=== PATIENT | female | born 1945 ===

== ENCOUNTER 2016-07-13 11:42 | Inpatient (IN) | payer MEDICARE, MEDICAID ==
[2016-07-13 11:46] VITALS: BMI 35.3
--- NOTE | 2016-07-13 12:32 | ED PDOC ---
HPI: Neurologic - General Time Seen by Provider: 07/13/16 12:00 Chief Complaint (Nursing): Dizziness/Lightheaded Chief Complaint (Provider): Dizziness/Lightheaded Source: patient Exam Limitations: clinical condition - History of Present Illness Timing/Duration: 1 week Associated Symptoms: denies symptoms Allergies/Adverse Reactions: Allergies No Known Allergies Allergy (Verified 09/03/15 19:46) Home Medications: Ambulatory Orders ARIPiprazole [Abilify] 5 mg PO HS 07/13/16 Alendronate [Fosamax] 70 mg PO QWK 07/13/16 Aspirin [Aspirin EC] 325 mg PO DAILY 07/13/16 Atorvastatin [Lipitor] 10 mg PO DAILY 07/13/16 Calcitriol [Rocaltrol] 0.5 mcg PO MOFR 07/13/16 Carvedilol [Coreg] 6.25 mg PO Q12H 07/13/16 Dorzolamide 2%/Timolol 0.5% [Cosopt 2%-0.5% Opht] 1 drop EACHEYE BID 07/13/16 Enalapril/Hydrochlorothiazide [Enalapril-Hctz 5-12.5 mg Tab] 1 tab PO DAILY 05/27 Ergocalciferol (Vitamin D2) [Vitamin D2] 50,000 unit PO QWK 07/13/16 Fenofibrate [Triglide] 160 mg PO DAILY 07/13/16 Furosemide [Lasix] 40 mg PO DAILY 07/13/16 GlipiZIDE [Glucotrol] 10 mg PO DAILY 07/13/16 Latanoprost [Xalatan] 1 drop EACHEYE HS 07/13/16 Omeprazole [Omeprazole] 20 mg PO DAILY 07/13/16 SITagliptin [Januvia] 25 mg PO DAILY 07/13/16 Vitamin B Complex/Vit C/Folic [Nephro-Diane] 1 tab PO DAILY 07/13/16 amLODIPine [Norvasc] 10 mg PO DAILY 07/13/16 lamoTRIgine [Lamictal] 50 mg PO HS 07/13/16 Additional Complaint(s): Patient is a 71 year old female who presents to ED for dizziness for 4 days. Patients that's that the room is spinning. Denies any pain. no headache/ vomiting. denies fever/chills. History of CVA with right hemiparalysis DR. Mcdonald NIHSS Stroke Scale - Date/Time Evaluation Performed When Was NIHSS Performed: Baseline - How Severe is the Stroke Level of Consciousness: 0=Alert LOC to Questions: 0=Both comments correct LOC to commands: 0=Obeys both correctly Best Gaze: 0=Normal Visual: 0=No visual loss Facial: 1=Minor asymmetry Motor Arm - Left: 0=No drift Motor Arm - Right: 1=Drift noted before 10 sec Motor Leg - Left: 0=No drift Motor Leg - Right: 1=Drift before 5 sec Limb Ataxia: 0=Absent Sensory: 0=Normal Best Language: 1=Mild to moderate aphasia Dysarthia: 1=Mild to moderate slurring Extinction & Inattention (Neglect): 0=Normal, no object Score: 5 rTPA Inclusion/Exclusion - Refusal of Treatment Patient Refused Treatment: No - Inclusion Criteria for Altepase Patient is 18 years or Older: Yes The Clinical Diagnosis of Ischemic Stroke That is Causing a Potentially Disabling Neurological Deficit: No Time of Onset is Well Established to be Less Than 270 Minute Before Treatment Would Begin: No Risk/Benefit Discussed With Patient/Family Member Present: No - Exclusion Criteria for Altepase Uncontrolled Hypertension at Time of Treatment (Systolic BP above 185 or Diastolic BP above 110 mmHg): No - Warning to TPA With Conditions Following Conditions Weighed Against Anticipated Benefit: No Past Medical History Reviewed: Historical Data, Nursing Documentation, Vital Signs Vital Signs: Last Vital Signs Temp 98.3 F 07/13/16 11:44 Pulse 51 L 07/13/16 11:44 Resp 18 07/13/16 11:44 BP 145/57 L 07/13/16 11:44 Pulse Ox 100 07/13/16 11:44 - Medical History PMH: Anxiety, Arthritis, CHF, CVA (9 years ago in [facility]), Dementia , Depression, Diabetes, HTN, Hypercholesterolemia, Hyperlipidemia, Kidney Stones , Schizophrenia, Seizures Denies: Chronic Kidney Disease - Surgical History Surgical History: No Surg Hx - Family History Family History: States: Unknown Family Hx - Living Arrangements Living Arrangements: With Family - Social History Current smoker - smoking cessation education provided: No Alcohol: None Drugs: Denies - Immunization History Hx Tetanus Toxoid Vaccination: No Hx Influenza Vaccination: Yes Hx Pneumococcal Vaccination: No - Home Medications Home Medications: Ambulatory Orders Medication Instructions Recorded ARIPiprazole [Abilify] 5 mg PO HS 07/13/16 Alendronate [Fosamax] 70 mg PO QWK 07/13/16 Aspirin [Aspirin EC] 325 mg PO DAILY 07/13/16 Atorvastatin [Lipitor] 10 mg PO DAILY 07/13/16 Calcitriol [Rocaltrol] 0.5 mcg PO MOFR 07/13/16 Carvedilol [Coreg] 6.25 mg PO Q12H 07/13/16 Dorzolamide 2%/Timolol 0.5% 1 drop EACHEYE BID 07/13/16 [Cosopt 2%-0.5% Opht] Enalapril/Hydrochlorothiazide 1 tab PO DAILY 07/13/16 [Enalapril-Hctz 5-12.5 mg Tab] Ergocalciferol (Vitamin D2) 50,000 unit PO QWK 07/13/16 [Vitamin D2] Fenofibrate [Triglide] 160 mg PO DAILY 07/13/16 Furosemide [Lasix] 40 mg PO DAILY 07/13/16 GlipiZIDE [Glucotrol] 10 mg PO DAILY 07/13/16 Latanoprost [Xalatan] 1 drop EACHEYE HS 07/13/16 Omeprazole [Omeprazole] 20 mg PO DAILY 07/13/16 SITagliptin [Januvia] 25 mg PO DAILY 07/13/16 Vitamin B Complex/Vit C/Folic 1 tab PO DAILY 07/13/16 [Nephro-Diane] amLODIPine [Norvasc] 10 mg PO DAILY 07/13/16 lamoTRIgine [Lamictal] 50 mg PO HS 07/13/16 - Allergies Allergies/Adverse Reactions: Allergies Allergy/AdvReac Type Severity Reaction Status Date / Time No Known Allergies Allergy Verified 09/03/15 19:46 Review of Systems ROS Statement: Except As Marked, All Systems Reviewed And Found Negative Neurological: Positive for: Dizziness Physical Exam - Reviewed Nursing Documentation Reviewed: Yes Vital Signs Reviewed: Yes - Physical Exam Appears: Positive for: Non-toxic, No Acute Distress Head Exam: Positive for: ATRAUMATIC, NORMAL INSPECTION Skin: Positive for: Normal Color, Warm, DRY Eye Exam: Positive for: EOMI, Normal appearance, PERRL Neck: Positive for: Normal, Painless ROM Cardiovascular/Chest: Positive for: Regular Rate, Rhythm. Negative for: Murmur Respiratory: Positive for: Normal Breath Sounds. Negative for: Respiratory Distress Gastrointestinal/Abdominal: Positive for: Normal Exam Extremity: Positive for: Normal ROM. Negative for: Pedal Edema Neurologic/Psych: Positive for: Alert, Oriented, Motor/Sensory Deficits (r hemipareis due to old stroke), Aphasia (due to old stroke), Facial Droop (due to old storke), Other (Chronic right hemiparalysis) - Laboratory Results Result Diagrams: 07/14/16 05:10 07/14/16 05:10 - ECG ECG: Positive for: Interpreted By Me ECG Rhythm: Positive for: Sinus Bradycardia. Negative for: ST/T Changes Rate: 49 O2 Sat by Pulse Oximetry: 100 (RA) Pulse Ox Interpretation: Normal - Radiology X-Ray: Viewed By Me, Read By Radiologist X-Ray Interpretation: Other (see MDM text for interpretations) Medical Decision Making Medical Decision Making: Time: 1210 Initial impression: Dizziness rule otu intracranial process, CVA Initial plan: -- EKG -- CMP -- Troponin -- CBC -- CXR 1401 Chest XRay read and reviewed by radiologist FINDINGS: LUNGS: Mild bibasilar atelectasis PLEURA: No significant pleural effusion identified, no pneumothorax apparent. CARDIOVASCULAR: Normal. OSSEOUS STRUCTURES: Re- demonstrated is deformity of the right humeral head as well as apparent old posttraumatic unfused fracture left humeral head clear VISUALIZED UPPER ABDOMEN: Normal. OTHER FINDINGS: None. IMPRESSION: Mild bibasilar atelectasis 1522 Upon reevaluation, pt is neurologically at baseline. 1545 Upon reevaluation, patient reports feeling dizziness. Patient is given Meclizine and will be evaluated by speech pathology. after meclziine pt still dizzy and will be [facility] on-call Dr valencia. Patient is being admitted under Dr. Valencia because her PMD is not affiliated with [facility]. 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 1640 Dr Lehman called for consult. no answer back. dx dizziness Scribe Attestation: Documented by Erica El acting as a scribe for Max Calderon MD MD Scribe Attestation: All medical record entries made by the Scribe were at my direction and personally dictated by me. I have reviewed the chart and agree that the record accurately reflects my personal performance of the history, physical exam, medical decision making, and the department course for this patient. I have also personally directed, reviewed, and agree with the discharge instructions and disposition. Disposition - Clinical Impression Clinical Impression: Dizziness - Patient ED Disposition Is Patient to be Admitted: Yes - Disposition Disposition Time: 15:00 Condition: FAIR
[2016-07-13 12:59] LABS: BASO # 0.1 K/uL (0.0-0.2); BASO % 0.8 % (0.0-2.0); EOS # 0.1 K/uL (0.0-0.7); EOS % 1.2 % (0.0-4.0); HEMATOCRIT 35.2 % (34.0-47.0); LYMPH # 1.9 K/uL (1.0-4.3); LYMPH % 19.5 % (20.0-40.0); MEAN CELL VOLUME 83.9 fl (81.0-99.0); MEAN CORPUSCULAR HEMOGLOBIN 27.8 pg (27.0-31.0); MEAN CORPUSCULAR HGB CONC 33.2 g/dL (33.0-37.0); MEAN PLATELET VOLUME 10.5 fl (7.2-11.7); MONO # 0.6 K/uL (0.0-0.8); NEUT # 7.2 K/uL (1.8-7.0); NEUT % 72.5 % (50.0-75.0); NRBC % 0.1 % (0.0-0.0); RED CELL DISTRIBUTION WIDTH 15.7 % (11.5-14.5); WHITE BLOOD COUNT 9.9 K/uL (4.8-10.8)
[2016-07-13 13:10] LABS: ALB/GLOB RATIO 1.2 (1.0-2.1); ALKALINE PHOSPHATASE 60 U/L (38-126); ALT/SGPT 35 U/L (9-52); AST/SGOT 33 U/L (14-36); BILIRUBIN,TOTAL 1.2 mg/dl (0.2-1.3); BLOOD UREA NITROGEN 23 mg/dl (7-17); CALCIUM 9.8 mg/dL (8.4-10.2); CARBON DIOXIDE 30 mmol/L (22-30); CHLORIDE 101 mmol/L (98-107); GFR AFRICAN-AMERICAN 49; GLUCOSE,RANDOM 133 mg/dL (65-105); POTASSIUM 3.7 MMOL/L (3.6-5.0); SODIUM 141 mmol/l (132-148); TOTAL PROTEIN 7.2 G/DL (6.3-8.2)
--- NOTE | 2016-07-13 14:03 | RAD ---
HISTORY: dizziness COMPARISON: 05/24/2013 FINDINGS: LUNGS: Mild bibasilar atelectasis PLEURA: No significant pleural effusion identified, no pneumothorax apparent. CARDIOVASCULAR: Normal. OSSEOUS STRUCTURES: Re- demonstrated is deformity of the right humeral head as well as apparent old posttraumatic unfused fracture left humeral head clear VISUALIZED UPPER ABDOMEN: Normal. OTHER FINDINGS: None. IMPRESSION: Mild bibasilar atelectasis
--- NOTE | 2016-07-13 14:48 | CT ---
PROCEDURE: CT HEAD WITHOUT CONTRAST. HISTORY: dizziness COMPARISON: 09/03/2015. TECHNIQUE: Axial computed tomography images were obtained through the head/brain without intravenous contrast. Radiation dose: Total exam DLP = 844.31 mGy-cm. This CT exam was performed using one or more of the following dose reduction techniques: Automated exposure control, adjustment of the mA and/or kV according to patient size, and/or use of iterative reconstruction technique. FINDINGS: HEMORRHAGE: No intracranial hemorrhage. BRAIN: No mass effect or edema. Stable cortical atrophy and periventricular small vessel disease which appears be disproportionate to that expected to the degree of atrophy. Nonetheless these findings are stable. VENTRICLES: Unremarkable. No hydrocephalus. CALVARIUM: Unremarkable. PARANASAL SINUSES: Stable left sphenoid air cell disease. MASTOID AIR CELLS: Unremarkable as visualized. No inflammatory changes. OTHER FINDINGS: None. IMPRESSION: No acute intracranial abnormalities. No significant findings to account for the clinical presentation. No significant interval change compared to the prior examination(s).
--- NOTE | 2016-07-13 21:15 | CON ---
DATE: 07/13/2016 REASON FOR CONSULTATION: Dizziness. HISTORY OF PRESENT ILLNESS: The patient is a 71-year-old female who is brought to the Emergency Room with complaints of dizziness. She has dizziness over the last 4 days; however, it was getting worse . Dizziness is described as spinning sensation. She denies to have any new focal weakness in arms o r legs. She has history of cerebrovascular accident with slurring of speech and some weakness of the right side. REVIEW OF SYSTEMS: Denies any headache. Positive for dizziness, denies any chest pain, shortness of breath. Positive for some slurring of speech. Denies any constipation, diarrhea, dysuria, pyuria, cough, sputum production, hallucinations. PAST MEDICAL HISTORY: Includes, diabetes mellitus, hypertension, hypercholesterolemia, cerebrovascul ar accident. MEDICATIONS AT HOME: Include Rocaltrol, Abilify, aspirin, Januvia, Coreg, vitamin B complex, Xalatan eyedrops, Lamictal, Glucotrol, Norvasc, Lasix, omeprazole, Triglide, enalapril, Fosamax, and Lipitor . ALLERGIES: No known drug allergies. SOCIAL HISTORY: Denies smoking, use of alcohol or use of any illicit drugs. FAMILY HISTORY: Reviewed and noncontributory to this case. PHYSICAL EXAMINATION: GENERAL: The patient is an elderly pleasant female lying on the bed in no acute distress. VITAL SIGNS: Her blood pressure is 156/85, heart rate is 49 per minute, breathing at a rate of 16 pe r minute and her temperature is 98.3 degrees Fahrenheit. HEENT: Normocephalic, atraumatic. NECK: Supple. There are no carotid bruits. LUNGS: Clear. CARDIOVASCULAR: S1, S2 audible. No murmurs. ABDOMEN: Soft, nontender, bowel sounds present. NEUROLOGIC EXAMINATION: MENTAL STATUS: The patient is awake, alert, oriented to place, year, person. Speech is dysarthric. Naming and repetition is normal. Memory and cognition appears intact. CRANIAL NERVES: Pupils are 2 mm, minimally reactive to light. Visual miner are full. Extraocular movements are intact. There is slight decreased nasolabial fold on the right side. Palate is upgoin g bilaterally and tongue is midline. MOTOR: Tone is normal. Power on the left side is 5/5. Power on the right side is 4-5/5. REFLEXES: 1+ and symmetrical. Plantars downgoing bilaterally. GAIT: Deferred at the moment. LABORATORY DATA: Labs reviewed, shows WBC of 9.9, hemoglobin of 11.7, hematocrit 35.2 and platelets of 238. Sodium is 141, potassium 3.7, chloride 101, carbon dioxide 30, BUN of 23, creatinine 1.3, an d glucose of 133. She had a CT scan of the head done which showed no acute intracranial abnormality. IMPRESSION: 1. Dizziness, likely secondary to labyrinthine dysfunction. Rule out any new cerebrovascular accide nt. 2. History of old cerebrovascular accident with dysarthria. RECOMMENDATIONS: 1. The patient to have MRI of the brain without contrast. 2. The patient also to have a carotid Doppler study. 3. The patient to have an electroencephalogram. 4. The patient to be started on meclizine. 5. The patient to be continued on aspirin and statin with history of previous stroke. 6. Please continue other treatment and supportive care. 7. The patient also to be seen by physical therapy. Thank you for the opportunity to participate in the care of this patient. Patti Lehman MD cc: [id number] TT: 07/13/2016 21:14:57 Confirmation # [id number] Dictation # [id number]
[2016-07-13] MEDS: Insulin Regular 100 units/ml SC SCH (21:52)
[2016-07-13] MEDS: Latanoprost 0.005% Opht SOUTION OU SCH (23:02)
[2016-07-14] MEDS: Insulin Regular 100 units/ml SC SCH ×4 (06:44→21:22)
[2016-07-14 07:15] LABS: HEMATOCRIT 37.7 % (34.0-47.0); MEAN CELL VOLUME 83.8 fl (81.0-99.0); MEAN CORPUSCULAR HEMOGLOBIN 27.9 pg (27.0-31.0); MEAN CORPUSCULAR HGB CONC 33.3 g/dL (33.0-37.0); RED CELL DISTRIBUTION WIDTH 15.4 % (11.5-14.5); WHITE BLOOD COUNT 10.7 K/uL (4.8-10.8)
[2016-07-14 07:26] LABS: ALB/GLOB RATIO 1.2 (1.0-2.1); BILIRUBIN,TOTAL 1.6 mg/dl (0.2-1.3); CALCIUM 10.1 mg/dL (8.4-10.2); POTASSIUM 3.6 MMOL/L (3.6-5.0); TOTAL PROTEIN 7.6 G/DL (6.3-8.2)
[2016-07-14 07:45] LABS: T4 10.8 ug/dl (5.5-11.0)
[2016-07-14 07:59] LABS: THYROID STIMULATING HORMONE 1.76 mIU/ML (0.46-4.68)
[2016-07-14] MEDS ORDERED: HYDROCHLOROTHIAZIDE PO SCH (09:00)
[2016-07-14] MEDS ORDERED: Ergocalciferol 50,000 Intl Units Cap PO SCH (09:00)
[2016-07-14] MEDS ORDERED: Patient's Own Med (Dorzolamide 2%/Timolol 0.5% [Cosopt 2%-0.5% Opht] 1 DROP) EACHEYE SCH (09:00)
[2016-07-14] MEDS ORDERED: ENALAPRIL PO SCH (09:00)
[2016-07-14] MEDS ORDERED: ALENDRONATE 70 MG TAB PO SCH (09:00)
--- NOTE | 2016-07-14 09:37 | CP.PCM.HP ---
History of Present Illness - History of Present Illness History of Present Illness: 71yo F with PMHx HTN, DM2, Osteoporosis, CVA x2(2005, 12/2015) admitted for dizziness X4 days. Denies vision change, new focal deficits, new changes in speech, new facial droop. Baseline, decreased motor strength in left side of body. Had been in [facility] s/p new CVA and d/c 03/2016 from rehab. PMHx: as above FHx: M-DM, HTN. F-DM, HTN SHx: TKR Social hx: denies x3 Allergies: NKDA Present on Admission - Present on Admission Any Indicators Present on Admission: No Review of Systems - Constitutional Constitutional: absent: Chills, Fever - EENT Eyes: absent: Change in Vision - Cardiovascular Cardiovascular: absent: Chest Pain - Respiratory Respiratory: absent: Dyspnea - Gastrointestinal Gastrointestinal: absent: Abdominal Pain, Diarrhea, Nausea, Vomiting - Genitourinary Genitourinary: absent: Dysuria, Hematuria - Musculoskeletal Musculoskeletal: Muscle Weakness (chronic). absent: Back Pain - Neurological Neurological: Dizziness, Focal Weakness (chronic), Weakness (chronic). absent: Loss of Vision Past Patient History - Infectious Disease Hx of Infectious Diseases: None - Tetanus Immunizations Tetanus Immunization: Unknown - Past Medical History & Family History Past Medical History?: Yes - Past Social History Smoking Status: Never Smoked - CARDIAC Hx Congestive Heart Failure: Yes Hx Hypercholesterolemia: Yes Hx Hypertension: Yes - PULMONARY Hx Respiratory Disorders: No - NEUROLOGICAL Hx Dementia: Yes Hx Seizures: Yes Other/Comment: dizzy - HEENT Hx HEENT Problems: No - RENAL Hx Chronic Kidney Disease: No Hx Kidney Stones: Yes - ENDOCRINE/METABOLIC Hx Endocrine Disorders: Yes (DM) Hx Diabetes Mellitus Type 2: Yes - HEMATOLOGICAL/ONCOLOGICAL Hx Blood Disorders: No - INTEGUMENTARY Hx Dermatological Problems: No - MUSCULOSKELETAL/RHEUMATOLOGICAL Hx Arthritis: Yes Hx Falls: No - GASTROINTESTINAL Hx Gastrointestinal Disorders: No - GENITOURINARY/GYNECOLOGICAL Hx Genitourinary Disorders: No Other/Comment: kidney stones - PSYCHIATRIC Hx Anxiety: Yes Hx Depression: Yes Hx Schizophrenia: Yes Hx Substance Use: No - SURGICAL HISTORY Hx Joint Replacement: Yes (TKR, bilateral; last one on the right, Jul, 2015) Hx Orthopedic Surgery: Yes (alfreda knees) Other/Comment: colonoscopy and kidney sx pt cannot recall name. - ANESTHESIA Hx Anesthesia: Yes Hx Anesthesia Reactions: No Hx Malignant Hyperthermia: No Meds Allergies/Adverse Reactions: Allergies Allergy/AdvReac Type Severity Reaction Status Date / Time No Known Allergies Allergy Verified 09/03/15 19:46 Physical Exam - Constitutional Appears: Non-toxic, No Acute Distress - Head Exam Head Exam: NORMAL INSPECTION - Eye Exam Eye Exam: EOMI, PERRL Pupil Exam: PERRL - ENT Exam ENT Exam: Mucous Membranes Moist - Neck Exam Neck exam: Positive for: Normal Inspection - Respiratory Exam Respiratory Exam: Clear to Auscultation Bilateral - Cardiovascular Exam Cardiovascular Exam: REGULAR RHYTHM - Extremities Exam Extremities exam: Positive for: normal inspection - Neurological Exam Neurological exam: Alert, Oriented x3 Additional comments: CN 7 palsy, otherwise CN2-12 grossly intact upper ext strength 4/5 lower ext strength 3/5 sensation grossly intact - Skin Skin Exam: Dry, Warm Results - Vital Signs Recent Vital Signs: Last Vital Signs Temp 98.2 F 07/14/16 08:15 Pulse 57 L 07/14/16 08:15 Resp 20 07/14/16 08:15 BP 156/78 H 07/14/16 08:15 Pulse Ox 98 07/14/16 08:15 - Labs Result Diagrams: 07/14/16 05:10 07/14/16 05:10 Labs: Laboratory Results - last 24 hr 07/13/16 07/13/16 07/14/16 16:09 21:36 05:10 WBC 10.7 RBC 4.50 Hgb 12.6 Hct 37.7 MCV 83.8 MCH 27.9 MCHC 33.3 RDW 15.4 H Plt Count 262 Sodium Potassium Chloride Carbon Dioxide Anion Gap BUN Creatinine Est GFR ( Amer) Est GFR (Non-Af Amer) POC Glucose (mg/dL) 125 H 124 H Random Glucose Calcium Total Bilirubin AST ALT Alkaline Phosphatase Total Protein Albumin Globulin Albumin/Globulin Ratio Triglycerides Cholesterol LDL Cholesterol Direct HDL Cholesterol Thyroxine (T4) Total T3 TSH 3rd Generation 07/14/16 07/14/16 05:10 05:15 WBC RBC Hgb Hct MCV MCH MCHC RDW Plt Count Sodium 145 Potassium 3.6 Chloride 102 Carbon Dioxide 31 H Anion Gap 16 BUN 20 H Creatinine 1.4 H Est GFR ( Amer) 45 Est GFR (Non-Af Amer) 37 POC Glucose (mg/dL) 110 Random Glucose 109 H Calcium 10.1 Total Bilirubin 1.6 H AST 33 ALT 37 Alkaline Phosphatase 69 Total Protein 7.6 Albumin 4.2 Globulin 3.4 Albumin/Globulin Ratio 1.2 Triglycerides 103 D Cholesterol 136 LDL Cholesterol Direct 48 HDL Cholesterol 50 Thyroxine (T4) 10.8 Total T3 1.21 L TSH 3rd Generation 1.76 Assessment & Plan - Assessment and Plan (Free Text) Assessment: 71yo F with PMHx HTN, DM2, Osteoporosis, CVA x2(2005, 12/2015) admitted for dizziness. dizziness in pt with h/o CVA -neuro on board, appreciate input -CT head no acute change -tolerating PO -PT/OT -EEG -MRI brain -carotid US -c/w statin, ASA -meclizine -monitor BP HTN -c/w amlodipine, coreg DM2 -c/w januvia, glypzide DVT ppx -lovenox Decision To Admit - Pt Status Changed To: Hospital Disposition Of: Inpatient - Admit Certification Admit to Inpatient:: After my assessment, the patient will require hospitalization for at least two midnights. This is because of the severity of symptoms shown, intensity of services needed, and/or the medical risk in this patient being treated as an outpatient. - . Bed Request Type: Telemetry Admitting Physician: Keegan Walls
[2016-07-14] MEDS: Pantoprazole 40 mg EC Tab PO SCH (09:49)
[2016-07-14] MEDS: Multivitamin Vitamin B Complex (Nephro-Vite) Tab PO SCH (09:51)
[2016-07-14] MEDS: Dorzolamide 2% Ophth Soln OU SCH ×2 (09:51→17:37)
[2016-07-14] MEDS: Enoxaparin 40 mg Syringe SC SCH (09:51)
[2016-07-14] MEDS: Aspirin 325 mg EC Tablets PO SCH (09:56)
--- NOTE | 2016-07-14 10:03 | PN ---
DATE: 07/14/2016 SUBJECTIVE: The patient is lying on the bed, in no acute distress. Denies having any headache. Her dizziness is better. PHYSICAL EXAMINATION: VITAL SIGNS: Her blood pressure is 156/78, heart rate is 57 per minute, breathing at a rate of 16 pe r minute, temperature is 98.2 degrees Fahrenheit. HEENT: Normocephalic, atraumatic. NECK: Supple. There are no carotid bruits. LUNGS: Clear. CARDIOVASCULAR: S1, S2 audible. No murmurs. ABDOMEN: Soft, nontender. Bowel sounds present. NEUROLOGIC EXAMINATION: MENTAL STATUS: The patient is awake, alert, oriented. Her speech is dysarthric which is old. CRANIAL NERVE: Pupils 2 mm, minimally reactive to light. Extraocular movements are intact. There i s no facial asymmetry. MOTOR: She is moving all 4 extremities symmetrically. Plantars downgoing bilaterally. GAIT: Deferred at the moment. [id number]-[id number]-tyth shows no dysmetria. LABORATORY DATA: Labs reviewed, show WBC 10.7, hemoglobin 12.6, hematocrit 37.7, and platelets of 26 2. Sodium 145, potassium 3.6, chloride of 102, carbon dioxide 31, BUN of 20, creatinine of 1.4 and g lucose of 109. IMPRESSION: 1. Status post dizziness, likely secondary to labyrinthine dysfunction. 2. History of old cerebrovascular accident with dysarthria. RECOMMENDATIONS: 1. The patient to have MRI of the brain without contrast. 2. The patient also awaiting carotid Doppler study as well as an electroencephalogram. 3. The patient's dizziness is better on meclizine. 4. The patient to be continued on aspirin and statin with her history of previous stroke. 5. Please continue physical therapy. 6. Please continue other treatment and supportive care. Thank you for the opportunity to participate in the care of this patient. Patti Lehman MD cc: [id number] TT: 07/14/2016 10:03:38 Confirmation # [id number] Dictation # [id number]
--- NOTE | 2016-07-14 10:17 | CARD ---
APPROVED REPORT EKG Measurement Heart [id number] <Conclusion> Sinus bradycardia Otherwise normal ECG
[2016-07-14] MEDS: Latanoprost 0.005% Opht SOUTION OU SCH (21:24)
[2016-07-15] MEDS: Insulin Regular 100 units/ml SC SCH ×4 (07:01→21:54)
[2016-07-15 07:28] LABS: HEMATOCRIT 38.2 % (34.0-47.0); MEAN CORPUSCULAR HEMOGLOBIN 27.9 pg (27.0-31.0); MEAN CORPUSCULAR HGB CONC 33.2 g/dL (33.0-37.0); RED CELL DISTRIBUTION WIDTH 15.6 % (11.5-14.5); WHITE BLOOD COUNT 10.9 K/uL (4.8-10.8)
[2016-07-15 07:30] LABS: ALB/GLOB RATIO 1.2 (1.0-2.1); ALKALINE PHOSPHATASE 64 U/L (38-126); ALT/SGPT 32 U/L (9-52); AST/SGOT 22 U/L (14-36); BILIRUBIN,TOTAL 1.2 mg/dl (0.2-1.3); BLOOD UREA NITROGEN 27 mg/dl (7-17); CALCIUM 9.8 mg/dL (8.4-10.2); CARBON DIOXIDE 30 mmol/L (22-30); CHLORIDE 101 mmol/L (98-107); GFR AFRICAN-AMERICAN 39; GLUCOSE,RANDOM 90 mg/dL (65-105); POTASSIUM 3.1 MMOL/L (3.6-5.0); SODIUM 143 mmol/l (132-148)
--- NOTE | 2016-07-15 07:30 | CP.PCM.PN ---
Subjective - Date & Time of Evaluation Date of Evaluation: 07/15/16 Time of Evaluation: 07:30 - Subjective Subjective: evaluated with attending. no overnight events. Tolerating PO, eating, drinking, making urine. No new deficits. Denies chest pain, SOB, abd pain. Objective - Vital Signs/Intake and Output Vital Signs (last 24 hours): Temp Pulse Resp BP Pulse Ox 98.3 F 59 L 18 154/84 H 97 07/15/16 04:56 07/15/16 04:56 07/15/16 04:56 07/15/16 04:56 07/15/16 04:56 - Medications Medications: Current Medications Alendronate Sodium (Fosamax) 70 mg PO QWK [facility] Amlodipine Besylate (Norvasc) 10 mg PO DAILY [facility] Last Admin: 07/14/16 09:49 Dose: 10 mg Aripiprazole (Abilify) 5 mg PO HS [facility] Last Admin: 07/14/16 21:21 Dose: 5 mg Aspirin (Ecotrin) 325 mg PO DAILY [facility] Last Admin: 07/14/16 09:56 Dose: 325 mg Atorvastatin Calcium (Lipitor) 10 mg PO DAILY@2200 [facility] Last Admin: 07/14/16 21:23 Dose: 10 mg Calcitriol (Rocaltrol) 0.5 mcg PO MOFR [facility] Carvedilol (Coreg) 6.25 mg PO Q12H [facility] Last Admin: 07/14/16 21:21 Dose: 6.25 mg Dorzolamide HCl (Trusopt) 1 drop OU BID [facility] Last Admin: 07/14/16 17:37 Dose: 1 drop Enalapril Maleate (Vasotec) 5 mg PO DAILY [facility] Last Admin: 07/14/16 09:52 Dose: 5 mg Enoxaparin Sodium (Lovenox) 40 mg SC DAILY [facility] PRN Reason: Protocol Last Admin: 07/14/16 09:51 Dose: 40 mg Ergocalciferol (Drisdol 50,000 Intl Units Cap) 1 cap PO QWK [facility] Fenofibrate (Tricor) 145 mg PO DAILY [facility] Last Admin: 07/14/16 09:52 Dose: 145 mg Furosemide (Lasix) 40 mg PO DAILY [facility] Last Admin: 07/14/16 09:52 Dose: 40 mg Glipizide (Glucotrol) 10 mg PO DAILY [facility] Last Admin: 07/14/16 09:48 Dose: 10 mg Hydrochlorothiazide (Microzide) 12.5 mg PO DAILY [facility] Last Admin: 07/14/16 09:50 Dose: 12.5 mg Insulin Human Regular (Humulin R) 0 units SC [facility] PRN Reason: Protocol Last Admin: 07/15/16 07:01 Dose: Not Given Lamotrigine (Lamictal) 50 mg PO HS [facility] Last Admin: 07/14/16 21:23 Dose: 50 mg Latanoprost (Xalatan Opht) 1 drop OU HS [facility] Last Admin: 07/14/16 21:24 Dose: 1 drop Meclizine HCl (Antivert) 12.5 mg PO DAILY [facility] Last Admin: 07/14/16 09:54 Dose: 12.5 mg Pantoprazole Sodium (Protonix Ec Tab) 40 mg PO DAILY [facility] Last Admin: 07/14/16 09:49 Dose: 40 mg Sitagliptin Phosphate (Januvia) 25 mg PO DAILY [facility] Last Admin: 07/14/16 09:49 Dose: 25 mg Timolol Maleate (Timoptic 0.5% Ophth Soln) 1 drop OU BID@1100,1900 [facility] Last Admin: 07/14/16 21:24 Dose: 1 drop Vitamin B Complex/Vit C/Folic Acid (Nephro-Diane) 1 tab PO DAILY [facility] Last Admin: 07/14/16 09:51 Dose: 1 tab - Labs Labs: 07/14/16 05:10 07/14/16 05:10 - Constitutional Appears: Non-toxic, No Acute Distress - Head Exam Head Exam: NORMAL INSPECTION - Eye Exam Eye Exam: EOMI, PERRL - ENT Exam ENT Exam: Mucous Membranes Moist - Neck Exam Neck Exam: Normal Inspection - Respiratory Exam Respiratory Exam: Clear to Ausculation Bilateral - Cardiovascular Exam Cardiovascular Exam: REGULAR RHYTHM - GI/Abdominal Exam GI & Abdominal Exam: Soft, Normal Bowel Sounds - Extremities Exam Extremities Exam: Normal Inspection. 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 dizziness in pt with h/o CVA -neuro on board, appreciate input -CT head no acute change -tolerating PO -PT/OT -EEG -MRI brain pending read -carotid US pending read -c/w statin, ASA -meclizine -monitor BP hypokalemia -likely d/t HCTZ -KCL 40mEq -K in AM HTN -c/w amlodipine, HCTZ -hold coreg d/t bradycardia DM2 -c/w januvia, glypzide DVT ppx -lovenox Dispo: PT/OT eval will check if pt able to be placed in [facility]
[2016-07-15] MEDS: Enoxaparin 40 mg Syringe SC SCH (09:42)
[2016-07-15] MEDS: Multivitamin Vitamin B Complex (Nephro-Vite) Tab PO SCH (09:43)
[2016-07-15] MEDS: Pantoprazole 40 mg EC Tab PO SCH (09:43)
[2016-07-15] MEDS: Dorzolamide 2% Ophth Soln OU SCH ×2 (09:46→16:59)
--- NOTE | 2016-07-15 11:26 | US ---
Carotid ultrasound Indication: Dizziness, old CVA Technique: Grayscale, color, and duplex Doppler imaging of the bilateral carotid and vertebral arteries. Findings: Moderate amount of calcified plaque noted bilaterally. Peak systolic velocities are as follows (cm/sec) Right: CCA - proximal 42.7 CCA - mid 61.4 CCA- distal 57.0 ECA 68.0 ICA - proximal 46.0 ICA - mid 40.6 ICA - distal 46.0 Vertebral- antegrade 47.1 ICA/CCA- 0.8 Left: CCA - proximal 69.1 CCA - mid 114.0 CCA- distal 67.2 ECA 71.1 ICA - proximal 41.4 ICA - mid 77.7 ICA - distal 63.4 Vertebral- antegrade 55.7 ICA/CCA- 1.2 Impression: Moderate amount of calcified plaque noted bilaterally. No evidence of hemodynamically significant stenosis. Measurement of carotid stenosis is based on velocity parameters that correlate measurement of carotid stenosis is based on velocity parameters that correlate the residual internal carotid diameter with that of the more distal vessel in accordance with the [place] symptomatic carotid endarterectomy Trial (NASCET).
--- NOTE | 2016-07-15 11:52 | EEG ---
DATE: 07/15/2016 INTRODUCTION: This is a digitally recorded EEG monitoring using standard EEG montages. BACKGROUND RHYTHM: The EEG shows a background activity of 8-9 Hz alpha activity in parietooccipital region. The EEG activity is bilaterally symmetrical and synchronous. There is attenuation of the ba ckground activity on eye opening. ABNORMAL POTENTIALS: No spikes, sharp waves or focal slowing was seen. PHOTIC STIMULATION AND HYPERVENTILATION: Photic stimulation did not reveal any abnormality. Hyperve ntilation was not performed. IMPRESSION: Normal electroencephalogram. No epileptiform activity seen in this electroencephalogram recording. Patti Lehman MD cc: [id number] TT: 07/15/2016 11:52:14 Confirmation # [id number] Dictation # [id number] en
--- NOTE | 2016-07-15 12:10 | OP ---
PROCEDURE DATE: 07/15/2016 The patient is lying in the bed, in no acute distress. Denies having any headache or dizziness, feel s good. PHYSICAL EXAMINATION: VITAL SIGNS: Her blood pressure is 142/82, heart rate is 54 per minute, breathing at a rate of 16 pe r minute, temperature is 98.4 degrees Fahrenheit. HEENT: Normocephalic, atraumatic. NECK: Supple. There are no carotid bruits. LUNGS: Clear. CARDIOVASCULAR: S1, S2 audible. No murmurs. ABDOMEN: Soft, nontender, bowel sounds present. NEUROLOGY: Patient is awake, alert, oriented to time, place, person. She does have dysarthria which is old. Cranial nerves: Pupils 2 mm, minimally reactive to light. Visual miner are full. Extrao cular movements are intact. There is no facial asymmetry. She is moving all 4 extremities symmetric ally. Plantars downgoing bilaterally. LABORATORY DATA: Reviewed. Shows WBC of 10.9, hemoglobin 12.7, hematocrit of 38.2, and platelets of 253. Sodium is 143, potassium 3.1, chloride of 101, carbon dioxide 30, BUN of 27, creatinine of 1.6 and glucose of 90. She had had an electroencephalogram done which is normal. IMPRESSION: 1. Status post dizziness likely secondary to labyrinthine dysfunction. 2. History of old cerebrovascular accident with dysarthria. RECOMMENDATIONS: 1. The patient had MRI of the brain done, please follow up the report. 2. The patient has no further dizziness. 3. The patient to be continued on meclizine. 4. The patient also to be continued on aspirin and statin with her underlying cerebrovascular diseas e. 5. Please follow the results of MRI of the brain. 6. Please also follow up the report of the carotid ultrasound. 7. Please continue other treatment and supportive care. 8. The patient to have physical therapy. 9. Please continue other treatment. Thank you for the opportunity to participate in the care of this patient. Patti Lehman MD cc: [id number] TT: 07/15/2016 12:09:04 estrella
[2016-07-15] MEDS: Potassium CL 10 MEQ/50 ML 50 ML IVPB SCH ×3 (13:27→16:59)
[2016-07-15] MEDS: Aspirin 325 mg EC Tablets PO SCH (13:27)
--- NOTE | 2016-07-15 13:53 | MRI ---
PROCEDURE: MRI of the brain dated 07/14/2016 HISTORY: cva COMPARISON: Comparison made with CT scan of the brain dated 07/13/2016. TECHNIQUE: Multiplanar, multisequence MR images of the brain were obtained without intravenous contrast enhancement. FINDINGS: HEMORRHAGE: No acute parenchymal, subarachnoid or extra-axial hemorrhage there is a irregular somewhat slit-like area of dark T2 signal within the right lateral basal ganglia which could be related to residual hemosiderin deposition secondary to old hemorrhage versus basal ganglia calcification. Clinical correlation recommended. DWI: No acute infarcts identified on diffusion-weighted sequence. BRAIN PARENCHYMA: Significant diffuse/confluent chronic white matter ischemic changes are seen extending peripherally into the deep and subcortical white matter both cerebral hemispheres. In addition, there are multiple more discrete deep and subcortical white matter basal nuclei and minor chronic brainstem ischemic changes as well. None of these changes exhibit restricted diffusion. Moderate generalized volume loss. VENTRICLES: Ventricles are enlarged as secondary atrophy however no evidence of obstructive type hydrocephalus. CRANIUM: Calvarium appears grossly unremarkable. ORBITS: Grossly unremarkable. PARANASAL SINUSES/MASTOIDS: Subtotal opacification left chamber sphenoid sinus with central area of irregular dark T2 signal which could represent microcalcification and or inspissated desiccated secretions. VASCULAR SYSTEM: Visualized major vascular flow voids at skull base are patent. OTHER FINDINGS: None. IMPRESSION: No acute parenchymal, subarachnoid or extra-axial hemorrhage there is a irregular somewhat slit-like area of dark T2 signal within the right lateral basal ganglia which could be related to residual hemosiderin deposition secondary to old hemorrhage versus basal ganglia calcification. Clinical correlation recommended. Significant diffuse/confluent chronic white matter ischemic changes are seen extending peripherally into the deep and subcortical white matter both cerebral hemispheres. In addition, there are multiple more discrete deep and subcortical white matter basal nuclei and minor chronic brainstem ischemic changes as well. None of these changes exhibit restricted diffusion. Moderate generalized volume loss.
[2016-07-15] MEDS ORDERED: Potassium Chloride 20 mEq ER Tab PO ONE ×2 (15:34→20:00)
[2016-07-15 18:32] LABS: FOLATE > 20.0 ng/mL
[2016-07-15] MEDS: Latanoprost 0.005% Opht SOUTION OU SCH (21:53)
[2016-07-16] MEDS ORDERED: Potassium Chloride 20 mEq ER Tab PO ONE ×3 (06:00→21:45)
--- NOTE | 2016-07-16 07:56 | PN ---
DATE: 07/16/2016 The patient seen and examined. Interim events noted. Consults noted and appreciated. Urology follo wup and intervention noted and appreciated. The patient remains in progressive care unit on telemetr y monitoring. Denies any specific complaint. No chest pain, no shortness of breath. No headache, n o dizziness. PHYSICAL EXAMINATION: GENERAL: The patient is in no acute distress. VITAL SIGNS: Stable. HEART: S1, S2 normal, regular. LUNGS: Good bilateral air entry. ABDOMEN: Soft, nontender. EXTREMITIES: No edema, no calf swelling, no tenderness, no acute ischemia. CENTRAL NERVOUS SYSTEM: Essentially unchanged. DIAGNOSTIC DATA: Available diagnostic data reviewed. Overall, patient's general medical condition is ____. Physical therapy evaluation is pending. PLAN: As ordered. Keegan Walls MD cc: [id number] TT: 07/16/2016 07:55:23 Confirmation # [id number] Dictation # [id number] tn
[2016-07-16 08:02] LABS: HEMATOCRIT 37.8 % (34.0-47.0); MEAN CELL VOLUME 83.4 fl (81.0-99.0); MEAN CORPUSCULAR HEMOGLOBIN 27.8 pg (27.0-31.0); MEAN CORPUSCULAR HGB CONC 33.4 g/dL (33.0-37.0); RED CELL DISTRIBUTION WIDTH 15.5 % (11.5-14.5); WHITE BLOOD COUNT 10.7 K/uL (4.8-10.8)
[2016-07-16 08:08] LABS: CALCIUM 9.8 mg/dL (8.4-10.2)
[2016-07-16] MEDS: Aspirin 325 mg EC Tablets PO SCH (09:01)
[2016-07-16] MEDS: Enoxaparin 40 mg Syringe SC SCH (09:01)
[2016-07-16] MEDS: Multivitamin Vitamin B Complex (Nephro-Vite) Tab PO SCH (09:02)
[2016-07-16] MEDS: Pantoprazole 40 mg EC Tab PO SCH (09:02)
[2016-07-16] MEDS: Insulin Regular 100 units/ml SC SCH ×4 (09:02→21:31)
[2016-07-16] MEDS: Dorzolamide 2% Ophth Soln OU SCH ×2 (09:04→16:24)
[2016-07-16] MEDS: Potassium CL 10 MEQ/50 ML 50 ML IVPB SCH ×4 (17:34→21:41)
[2016-07-16] MEDS: Latanoprost 0.005% Opht SOUTION OU SCH (21:31)
--- NOTE | 2016-07-17 07:48 | PN ---
DATE: 07/17/2016 The patient seen and examined. Interim events noted. The patient remains in progressive care unit. The patient is awake, responsive, feels okay. No dizziness, no chest pain, no abdominal pain. PHYSICAL EXAMINATION: GENERAL: The patient is in no acute distress. VITAL SIGNS: Stable. HEART: S1, S2 normal, regular. LUNGS: Good bilateral air entry. ABDOMEN: Soft, nontender. EXTREMITIES: No edema, no calf swelling, no tenderness, no acute ischemia. CENTRAL NERVOUS SYSTEM: Essentially unchanged. DIAGNOSTIC DATA: Available reviewed. Potassium remains low and was replenished. Repeat potassium i s pending. Telemetry monitoring does reveal significant arrhythmias. Overall, patient's general medical condition is stable. PLAN: As ordered. Keegan Walls MD cc: [id number] TT: 07/17/2016 07:47:49 Confirmation # [id number] Dictation # [id number] en
[2016-07-17 08:48] LABS: POTASSIUM 3.5 MMOL/L (3.6-5.0)
[2016-07-17] MEDS: Multivitamin Vitamin B Complex (Nephro-Vite) Tab PO SCH (10:17)
[2016-07-17] MEDS: Enoxaparin 40 mg Syringe SC SCH (10:17)
[2016-07-17] MEDS: Pantoprazole 40 mg EC Tab PO SCH (10:19)
[2016-07-17] MEDS: Insulin Regular 100 units/ml SC SCH ×4 (10:19→22:37)
[2016-07-17] MEDS: Dorzolamide 2% Ophth Soln OU SCH ×2 (10:20→16:35)
[2016-07-17] MEDS: Aspirin 325 mg EC Tablets PO SCH (10:21)
[2016-07-17] MEDS: Latanoprost 0.005% Opht SOUTION OU SCH (21:32)
[2016-07-18 05:12] VITALS: RESP 18
[2016-07-18] MEDS: Insulin Regular 100 units/ml SC SCH ×4 (06:43→22:55)
--- NOTE | 2016-07-18 08:48 | PN ---
DATE: 07/18/2016 The patient seen and examined. Interim events noted. The patient remains in progressive care unit o n telemetry monitoring. She is awake, responsive, feels okay. No dizziness, no chest pain, no short ness of breath. Complains of generalized weakness. PHYSICAL EXAMINATION: GENERAL: The patient is in no acute distress. VITAL SIGNS: Stable. HEART: S1, S2 normal, regular. LUNGS: Good bilateral air exchange. ABDOMEN: Soft, nontender. EXTREMITIES: No edema, no calf swelling, no tenderness, no acute ischemia. CENTRAL NERVOUS SYSTEM: Essentially unchanged. DIAGNOSTIC DATA: Available reviewed. Telemetry monitoring does not reveal significant arrhythmia. Overall, patient's general medical condition is stable. Physical therapy is pending. PLAN: As ordered. Keegan Walls MD cc: [id number] TT: 07/18/2016 08:47:36 Confirmation # [id number] Dictation # [id number] en
[2016-07-18] MEDS: Aspirin 325 mg EC Tablets PO SCH ×2 (09:22→09:37)
[2016-07-18] MEDS: Pantoprazole 40 mg EC Tab PO SCH (09:26)
[2016-07-18] MEDS: Multivitamin Vitamin B Complex (Nephro-Vite) Tab PO SCH (09:26)
[2016-07-18] MEDS: Dorzolamide 2% Ophth Soln OU SCH ×2 (09:27→17:08)
--- NOTE | 2016-07-19 08:08 | PN ---
DATE: 07/19/2016 The patient seen and examined. Interim events noted. Physical therapy evaluation and recommendation noted and appreciated. The patient remains in progressive care unit on telemetry monitoring. Feels okay. Denies any dizziness, chest pain, shortness of breath, or any new weakness. PHYSICAL EXAMINATION: GENERAL: The patient is in no acute distress. VITAL SIGNS: Stable. HEART: S1, S2 normal, regular. LUNGS: Good bilateral air exchange. ABDOMEN: Soft, nontender. EXTREMITIES: No calf swelling, no edema, no calf tenderness. CENTRAL NERVOUS SYSTEM: Essentially unchanged. DIAGNOSTIC DATA: Available reviewed. Telemetry monitoring does not reveal significant arrhythmias. Overall, patient's general medical condition is stable. PLAN: As ordered. Keegan Walls MD cc: [id number] TT: 07/19/2016 08:08:01 Confirmation # [id number] Dictation # [id number] en
[2016-07-19] MEDS ORDERED: Enoxaparin 30 mg Syringe SC SCH (09:00)
[2016-07-19] MEDS: Insulin Regular 100 units/ml SC SCH ×2 (09:33→14:00)
[2016-07-19] MEDS: Multivitamin Vitamin B Complex (Nephro-Vite) Tab PO SCH (09:35)
[2016-07-19] MEDS: Aspirin 325 mg EC Tablets PO SCH (09:35)
[2016-07-19] MEDS: Pantoprazole 40 mg EC Tab PO SCH (09:37)
[2016-07-19] MEDS: Dorzolamide 2% Ophth Soln OU SCH (09:39)
[2016-07-19 12:23] VITALS: BP 102/66; PULSE 65; TEMP 98.1; O2SAT 96
--- NOTE | 2016-07-20 12:01 | PQF GENQUE ---
Dr. Walls neurology consult documents "dizziness likely secondary to labyrinthine dysfunction." Do you agree with neurologists findings? If not, what is the principal diagnosis for this case? This form is a permanent part of the medical record Clarification of your documentation is requested to better reflect the severity of illness and intensity of treatment of your patient. Indicators present [] Specify: [] [] Specify: [] [] Specify: [] [] Specify: [] Location in the medical record that reflects the above clinical findings: [] Treatment Provided: [] PHYSICIAN'S RESPONSE Based on your medical judgment of the clinical indicators outlined above please clarify the following: [] Practitioner response [] If unable to determine, please check the box, sign and date. Present On Admission (POA) Indicator: [] Present at the time of admission [] Not present at the time of admission [] Clinically Undetermined In responding to this query, please exercise your independent professional judgment. The fact that a question is asked does not imply that any particular answer is desired or expected. Thank you for your clarification on this documentation. If you have any questions please call:[ ] * Thank you, [ ]Giulia Ortiz materials mgmt tech MANNY
== END 2016-07-19 14:32 | DRG 149 ==
LOC: H.ER 11:42 → H.ERHOLD 15:43 → OBSVTOIN 15:43 → H.TEL 17:23
PROVIDERS: ADMIT Internal Medicine; ATTEND Internal Medicine
DX: H83.2X9 Labyrinthine dysfunction, unspecified ear (principal); I50.9 Heart failure, unspecified; F03.90 Unspecified dementia, unspecified severity, without behavioral disturbance, psychotic disturbance, mood disturbance, and anxiety; I11.0 Hypertensive heart disease with heart failure; F32.9 Major depressive disorder, single episode, unspecified; E87.6 Hypokalemia; E78.5 Hyperlipidemia, unspecified; I69.322 Dysarthria following cerebral infarction; E11.9 Type 2 diabetes mellitus without complications; E78.00 Pure hypercholesterolemia, unspecified; F41.9 Anxiety disorder, unspecified

== ENCOUNTER 2017-07-14 18:14 | Inpatient (IN) | payer MEDICARE, MEDICAID ==
[2017-07-14 18:14] VITALS: BMI 35.3
--- NOTE | 2017-07-14 18:47 | ED PDOC ---
HPI:STROKE - Historian Historian: alf, EMS (This is a 72 yo female [facility] resident who is brought by EMS because family noticed left sided weakness. Patient was last seen at baseline by them last night. Today her co-residents noted that she didn't get out of bed as usual. However, it was not until the family visited and brought it to the attention of the staff that she may have developed new weakness. Patient able to make some ) NIHSS Stroke Scale - Date/Time Evaluation Performed When Was NIHSS Performed: Baseline - How Severe is the Stroke Level of Consciousness: 0=Alert LOC to Questions: 0=Both comments correct LOC to commands: 0=Obeys both correctly Best Gaze: 0=Normal Visual: 0=No visual loss Facial: 0=Normal Motor Arm - Left: 3=No effort against gravity (falls immediately) Motor Arm - Right: 4=No movement Motor Leg - Left: 3=No effort against gravity (falls immediately) Motor Leg - Right: 4=No movement Sensory: 0=Normal Best Language: 0=No aphasia Dysarthia: 1=Mild to moderate slurring Extinction & Inattention (Neglect): 0=Normal, no object Severity Of Stroke: 5-15 = Moderate Stroke (Patient has baseline right sided hemiparesis) rTPA Inclusion/Exclusion - Refusal of Treatment Patient Refused Treatment: No - Inclusion Criteria for Altepase Patient is 18 years or Older: No The Clinical Diagnosis of Ischemic Stroke That is Causing a Potentially Disabling Neurological Deficit: Yes Time of Onset is Well Established to be Less Than 270 Minute Before Treatment Would Begin: No Risk/Benefit Discussed With Patient/Family Member Present: Yes - Exclusion Criteria for Altepase Uncontrolled Hypertension at Time of Treatment (Systolic BP above 185 or Diastolic BP above 110 mmHg): No - Warning to TPA With Conditions Condition: Increase Risk of Bleed Due to Comorbid Condition Additional Condition (For 3-4.5 Hour Window): Prior Stroke and Diabetes Past Medical History Reviewed: Historical Data Vital Signs: Last Vital Signs Temp 98.0 F 07/14/17 18:20 Pulse 67 07/14/17 18:20 Resp 18 07/14/17 18:20 BP 195/78 H 07/14/17 18:20 Pulse Ox 98 07/14/17 18:20 - Medical History PMH: Anxiety, Arthritis (B TKA), CHF, CVA (9 years ago in [place]), Dementia, Depression, Diabetes, HTN, Hypercholesterolemia, Hyperlipidemia, Kidney Stones, Schizophrenia, Seizures Denies: Chronic Kidney Disease - Family History Family History: States: Unknown Family Hx - Immunization History Hx Tetanus Toxoid Vaccination: No Hx Influenza Vaccination: Yes Hx Pneumococcal Vaccination: No - Home Medications Home Medications: Ambulatory Orders Medication Instructions Recorded ARIPiprazole [Abilify] 5 mg PO HS 07/13/16 Alendronate [Fosamax] 70 mg PO QWK 07/13/16 Aspirin [Aspirin EC] 325 mg PO DAILY 07/13/16 Atorvastatin [Lipitor] 10 mg PO DAILY 07/13/16 Calcitriol [Rocaltrol] 0.5 mcg PO MOFR 07/13/16 Carvedilol [Coreg] 6.25 mg PO Q12H 07/13/16 Dorzolamide 2%/Timolol 0.5% 1 drop EACHEYE BID 07/13/16 [Cosopt 2%-0.5% Opht] Enalapril/Hydrochlorothiazide 1 tab PO DAILY 07/13/16 [Enalapril-Hctz 5-12.5 mg Tab] Ergocalciferol (Vitamin D2) 50,000 unit PO QWK 07/13/16 [Vitamin D2] Fenofibrate [Triglide] 160 mg PO DAILY 07/13/16 Furosemide [Lasix] 40 mg PO DAILY 07/13/16 GlipiZIDE [Glucotrol] 10 mg PO DAILY 07/13/16 Latanoprost [Xalatan] 1 drop EACHEYE HS 07/13/16 Omeprazole 20 mg PO DAILY 07/13/16 SITagliptin [Januvia] 25 mg PO DAILY 07/13/16 Vitamin B Complex/Vit C/Folic 1 tab PO DAILY 07/13/16 [Nephro-Diane] amLODIPine [Norvasc] 10 mg PO DAILY 07/13/16 lamoTRIgine [Lamictal] 50 mg PO HS 07/13/16 Meclizine [Antivert] 12.5 mg PO DAILY #30 tab 07/19/16 - Allergies Allergies/Adverse Reactions: Allergies Allergy/AdvReac Type Severity Reaction Status Date / Time No Known Allergies Allergy Verified 09/03/15 19:46 Review of Systems Review Of Systems: ROS cannot be obtained secondary to pt's inabilty to answer questions. Physical Exam - Reviewed Nursing Documentation Reviewed: Yes - Physical Exam Head Exam: Positive for: ATRAUMATIC, NORMAL INSPECTION, NORMOCEPHALIC Skin: Positive for: Normal Color, Warm, DRY ENT: Positive for: Other (tongue protruded) Neck: Positive for: Normal Cardiovascular/Chest: Positive for: Regular Rate, Rhythm Respiratory: Positive for: Normal Breath Sounds Gastrointestinal/Abdominal: Positive for: Normal Exam Back: Positive for: Normal Inspection - ECG O2 Sat by Pulse Oximetry: 98 Disposition - Clinical Impression Clinical Impression: Weakness due to cerebrovascular accident - Patient ED Disposition Is Patient to be Admitted: Transfer of Care - Disposition Disposition: Transfer of Care Disposition Time: 18:53 Condition: FAIR Instructions: Weakness (ED) Patient Signed Over To: Carol Camarena Present On Arrival: None
[2017-07-14 19:02] LABS: VENOUS BLOOD GAS BASE EXCESS 13.1 mmol/L (0.0-2.0); VENOUS BLOOD GAS PCO2 56 mmHg (40-60); VENOUS BLOOD GAS PO2 36 mm/Hg (30-55); VENOUS BLOOD PH 7.46 (7.32-7.43)
[2017-07-14 19:02] LABS: BASO # 0.1 K/uL (0.0-0.2); BASO % 0.6 % (0.0-2.0); EOS # 0.2 K/uL (0.0-0.7); EOS % 1.4 % (0.0-4.0); HEMOGLOBIN 10.7 g/dL (12.0-16.0); LYMPH # 2.8 K/uL (1.0-4.3); LYMPH % 24.5 % (20.0-40.0); MEAN CORPUSCULAR HEMOGLOBIN 26.6 pg (27.0-31.0); MEAN CORPUSCULAR HGB CONC 32.8 g/dL (33.0-37.0); MONO % 8.7 % (0.0-10.0); NEUT # 7.4 K/uL (1.8-7.0); NEUT % 64.8 % (50.0-75.0); NRBC % 0.1 % (0.0-0.0); RBC 4.03 Mil/uL (3.80-5.20); RED CELL DISTRIBUTION WIDTH 16.7 % (11.5-14.5); WHITE BLOOD COUNT 11.5 K/uL (4.8-10.8)
[2017-07-14 19:13] LABS: INR 1.6 (0.9-1.2); PARTIAL THROMBOPLASTIN TIME 32.9 Seconds (25.6-37.1); PROTHROMBIN TIME 17.6 Seconds (9.8-13.1)
[2017-07-14 19:15] LABS: ALB/GLOB RATIO 1.2 (1.0-2.1); ALBUMIN 4.5 g/dL (3.5-5.0); CALCIUM 10.7 mg/dL (8.4-10.2)
--- NOTE | 2017-07-14 19:17 | ED PDOC ---
- Laboratory Results Result Diagrams: 07/14/17 18:35 07/14/17 18:35 - ECG O2 Sat by Pulse Oximetry: 98 Medical Decision Making Medical Decision Makin:00 Patient endorsed to me from Dr. Blunt. Pending CT scan, labs, and neurology consult. 19:41 CT Head FINDINGS: Brain: There is dilatation of sulci gyri and ventricles. There is no midline shift. There is extensive decreased attenuation in periventricular white matter, unchanged. There are basal ganglia calcifications bilaterally, unchanged. There are old lacunar infarcts in the basal ganglia. There are no focal masses. There are no focal hemorrhages. Sanches-white differentiation is visualized. Ventricles: See above Bones: Cranial vault is intact. Soft tissues: unremarkable Sinuses: There is no acute sinusitis. Ears and mastoids: Middle ears and mastoids are unremarkable. Orbits: Orbital contents are unremarkable. IMPRESSION: Atrophy with extensive small vessel disease, no acute intracranial abnormality, no bleed 20:43 Discussed case with neurologist Dr. Rader and determined stroke on consult. Agrees patient is not a TPA candidate. Dr. Rader recommended MRI be done along with plavix and aspirin be given. 20:[address] Walls and agreed to admit to telemetry. Agreed to consult neurologist manager business operations. Scribe Attestation: Documented by Alex Stephens acting as a scribe for Carol Camarena MD. Provider Scribe Attestation: All medical record entries made by the Scribe were at my direction and personally dictated by me. I have reviewed the chart and agree that the record accurately reflects my personal performance of the history, physical exam, medical decision making, and the department course for this patient. I have also personally directed, reviewed, and agree with the discharge instructions and disposition. Disposition Discussed With : Keegan Walls - Clinical Impression Clinical Impression: Weakness due to cerebrovascular accident, CVA (cerebral vascular accident), Hypokalemia - POA Present On Arrival: None - Disposition Disposition: Admitted as In-Patient Disposition Time: 20:40 Condition: FAIR
--- NOTE | 2017-07-14 19:42 | CT ---
EXAM: CT Head Without Intravenous Contrast EXAM DATE/TIME: 07/14/2017 6:40 PM CLINICAL HISTORY: 72 years old, female; Signs and symptoms; Other: Weakness left sided; Additional info: Left sided weakness, unknown time of onset TECHNIQUE: Axial computed tomography images of the head/brain without intravenous contrast. All CT scans at this facility use one or more dose reduction techniques, viz.: automated exposure control; ma/kV adjustment per patient size (including targeted exams where dose is matched to indication; i.e. head); or iterative reconstruction technique. Coronal and sagittal reformatted images were created and reviewed. COMPARISON: CT - HEAD W/O CONTRAST 2016-07-13 14:05 FINDINGS: Brain: There is dilatation of sulci gyri and ventricles. There is no midline shift. There is extensive decreased attenuation in periventricular white matter, unchanged. There are basal ganglia calcifications bilaterally, unchanged. There are old lacunar infarcts in the basal ganglia. There are no focal masses. There are no focal hemorrhages. Sanches-white differentiation is visualized. Ventricles: See above Bones: Cranial vault is intact. Soft tissues: unremarkable Sinuses: There is no acute sinusitis. Ears and mastoids: Middle ears and mastoids are unremarkable. Orbits: Orbital contents are unremarkable. IMPRESSION: Atrophy with extensive small vessel disease, no acute intracranial abnormality, no bleed
[2017-07-14] MEDS ORDERED: Potassium Chloride 20 mEq 100 ML IVPB ONE (19:50)
[2017-07-14] MEDS ORDERED: Potassium Chloride 20 mEq ER Tab PO ONE ×2 (19:52→19:59)
[2017-07-14] MEDS ORDERED: Sodium Chloride 0.9% 1,000 ML IV STA (19:53)
[2017-07-14] MEDS ORDERED: Potassium Chloride 20 mEq 100 ML ONE (19:59)
[2017-07-15] MEDS ORDERED: ALENDRONATE 70 MG TAB PO SCH (06:15)
[2017-07-15] MEDS: Sodium Chloride 0.9% 1,000 ML IV SCH (07:04)
[2017-07-15 08:29] LABS: ALB/GLOB RATIO 1.2 (1.0-2.1); CALCIUM 9.9 mg/dL (8.4-10.2); HEMOGLOBIN 9.6 g/dL (12.0-16.0); MEAN CELL VOLUME 81.3 fl (81.0-99.0); MEAN CORPUSCULAR HEMOGLOBIN 26.6 pg (27.0-31.0); MEAN CORPUSCULAR HGB CONC 32.7 g/dL (33.0-37.0); RBC 3.6 Mil/uL (3.80-5.20); RED CELL DISTRIBUTION WIDTH 16.6 % (11.5-14.5); WHITE BLOOD COUNT 11.2 K/uL (4.8-10.8)
[2017-07-15 08:56] LABS: T4 11.1 ug/dl (5.5-11.0)
[2017-07-15] MEDS ORDERED: Patient's Own Med (Dorzolamide 2%/Timolol 0.5% [Cosopt 2%-0.5% Opht] 1 DROP) EACHEYE SCH (09:00)
[2017-07-15 09:09] LABS: T3 0.827 nmol/L (1.49-2.60)
--- NOTE | 2017-07-15 11:41 | MRI ---
PROCEDURE: MRI of the brain dated 07/15/2017 HISTORY: Left-sided stroke COMPARISON: Comparison made with CT scan brain 07/14/2017 the TECHNIQUE: Multiplanar, multisequence MR images of the brain were obtained without intravenous contrast enhancement. FINDINGS: HEMORRHAGE: No acute parenchymal, subarachnoid nor extra-axial hemorrhage. DWI: No evidence of an acute or early subacute infarction seen on diffusion imaging. . BRAIN PARENCHYMA: Significant diffuse/confluent chronic periventricular white matter ischemic changes seen extending peripherally into the deep and subcortical white matter both cerebral hemispheres. There is also extension these changes into the white matter tracts of both basal nuclei. Multiple more discrete chronic appearing lacunar type infarcts scattered about the deep and subcortical white matter, both basal nuclei and brainstem. Moderate generalized volume loss. VENTRICLES: No obstructive hydrocephalus. CRANIUM: There are no acute calvarial abnormalities ORBITS: Orbits and contents grossly unremarkable PARANASAL SINUSES/MASTOIDS: Frontal sinuses are slightly underpneumatized - hypoplastic. Mucoperiosteal inflammatory changes again noted left chamber sphenoid sinus. VASCULAR SYSTEM: Visualized major vascular flow voids at skull base patent. OTHER FINDINGS: None. No acute intracranial hemorrhage. IMPRESSION: No acute intracranial hemorrhage. Extensive chronic white matter and basal nuclei ischemic changes. There also mild chronic ischemic changes seen within the brainstem as well. Moderate volume loss.
[2017-07-15] MEDS ORDERED: Dorzolamide 2% Ophth Soln OU SCH (13:00)
--- NOTE | 2017-07-15 13:06 | CARD ---
APPROVED REPORT EKG Measurement Heart [id number] <Conclusion> Normal sinus rhythm with sinus arrhythmia Moderate voltage criteria for LVH, may be normal variant Borderline ECG
[2017-07-15] MEDS: Aspirin 325 mg EC Tablets PO SCH (14:26)
[2017-07-15] MEDS: Multivitamin Vitamin B Complex (Nephro-Vite) Tab PO SCH (14:27)
[2017-07-15] MEDS: Pantoprazole 20 mg EC Tab PO SCH (14:28)
[2017-07-15] MEDS: Dorzolamide 2% Ophth Soln OU SCH ×2 (14:30→18:26)
--- NOTE | 2017-07-15 15:53 | CP.PCM.CON ---
History of Present Illness - History of Present Illness History of Present Illness: 72 yr old woman, CT resident, with pmh of dementia, CHF, HTN, prior lacunar strokes, who presented with left sided weakness noticed by family, last seen by them normal last night. She did not have a headache, aphasia, dysarthria or seizures. However, she had some trembling of her left arm. NIHSS Stroke Scale: 0 PMH/PSH; as above FH/SH: [place]: nkda. on exam: awake, alert, knows her name, not date. STicking out her tongue, but no facial asymmetry. moving all her limbs equally, no weakness appreciated now. +1 dtr ul and ll bl. Toes downgoing. no clonus. Past Patient History - Infectious Disease Hx of Infectious Diseases: None - Tetanus Immunizations Tetanus Immunization: Unknown - Past Medical History & Family History Past Medical History?: Yes - Past Social History Smoking Status: Never Smoked - CARDIAC Hx Congestive Heart Failure: Yes Hx Hypercholesterolemia: Yes Hx Hypertension: Yes - PULMONARY Hx Respiratory Disorders: No - NEUROLOGICAL Hx Dementia: Yes Hx Seizures: Yes - HEENT Hx HEENT Problems: No - RENAL Hx Chronic Kidney Disease: No Hx Kidney Stones: Yes - ENDOCRINE/METABOLIC Hx Diabetes Mellitus Type 2: Yes - HEMATOLOGICAL/ONCOLOGICAL Hx Blood Disorders: No - INTEGUMENTARY Hx Dermatological Problems: No - MUSCULOSKELETAL/RHEUMATOLOGICAL Hx Arthritis: Yes (B TKA) Hx Falls: Yes - GASTROINTESTINAL Hx Gastrointestinal Disorders: No - GENITOURINARY/GYNECOLOGICAL Hx Genitourinary Disorders: No Other/Comment: kidney stones - PSYCHIATRIC Hx Anxiety: Yes Hx Depression: Yes Hx Schizophrenia: Yes Hx Substance Use: No - SURGICAL HISTORY Hx Joint Replacement: Yes (TKR, bilateral; last one on the right, Jul, 2015) Hx Orthopedic Surgery: Yes (alfreda knees) Other/Comment: colonoscopy and kidney sx pt cannot recall name. - ANESTHESIA Hx Anesthesia: Yes Hx Anesthesia Reactions: No Hx Malignant Hyperthermia: No Meds Allergies/Adverse Reactions: Allergies Allergy/AdvReac Type Severity Reaction Status Date / Time No Known Allergies Allergy Verified 09/03/15 19:46 - Medications Medications: Current Medications Acetaminophen (Tylenol 325mg Tab) 650 mg PO Q4 PRN PRN Reason: Pain, moderate (4-7) Alendronate Sodium (Fosamax) 70 mg PO QWK [facility] Amlodipine Besylate (Norvasc) 10 mg PO DAILY [facility] Aripiprazole (Abilify) 5 mg PO HS [facility] Aspirin (Ecotrin) 325 mg PO DAILY [facility] Atorvastatin Calcium (Lipitor) 10 mg PO DAILY [facility] Calcitriol (Rocaltrol) 0.5 mcg PO MOFR [facility] Carvedilol (Coreg) 6.25 mg PO Q12@0900,2100 [facility] Enalapril Maleate (Vasotec) 5 mg PO DAILY [facility] Ergocalciferol (Drisdol 50,000 Intl Units Cap) 1 cap PO NOHEMI [facility] Fenofibrate (Tricor) 145 mg PO DAILY [facility] Glipizide (Glucotrol) 10 mg PO DAILY [facility] Hydrochlorothiazide (Microzide) 12.5 mg PO DAILY [facility] Sodium Chloride (Sodium Chloride 0.9%) 1,000 mls @ 100 mls/hr IV .Q10H [facility] Stop: 07/16/17 06:11 Last Admin: 07/15/17 07:04 Dose: 100 mls/hr Lamotrigine (Lamictal) 50 mg PO HS [facility] Pantoprazole Sodium (Protonix Ec Tab) 20 mg PO DAILY [facility] Rivaroxaban (Xarelto) 15 mg PO DAILY [facility] PRN Reason: Protocol Sitagliptin Phosphate (Januvia) 25 mg PO DAILY [facility] Timolol Maleate (Timoptic 0.5% [facility]) 1 drop OU HS [facility] Vitamin B Complex/Vit C/Folic Acid (Nephro-Diane) 1 tab PO DAILY [facility] Results - Vital Signs Recent Vital Signs: Last Vital Signs Temp 97.9 F 07/15/17 08:15 Pulse 59 L 07/15/17 08:15 Resp 20 07/15/17 08:15 BP 115/72 07/15/17 08:15 Pulse Ox 98 07/15/17 08:15 - Labs Result Diagrams: 07/15/17 07:30 07/15/17 07:30 Labs: Laboratory Results - last 24 hr 07/14/17 07/14/17 07/14/17 18:35 18:35 18:35 WBC 11.5 H RBC 4.03 Hgb 10.7 L Hct 32.7 L MCV 81.0 D MCH 26.6 L MCHC 32.8 L RDW 16.7 H Plt Count 335 MPV 10.0 Neut % (Auto) 64.8 Lymph % (Auto) 24.5 [place] % (Auto) 8.7 Eos % (Auto) 1.4 Baso % (Auto) 0.6 Neut # (Auto) 7.4 H Lymph # (Auto) 2.8 [place] # (Auto) 1.0 H Eos # (Auto) 0.2 Baso # (Auto) 0.1 PT 17.6 H INR 1.6 H APTT 32.9 pO2 VBG pH VBG pCO2 VBG HCO3 VBG Total CO2 VBG O2 Sat (Calc) VBG Base Excess VBG Potassium Glucose Lactate FiO2 Sodium 146 Potassium 2.8 L Chloride 96 L Carbon Dioxide 37 H Anion Gap 16 BUN 57 H Creatinine 2.8 H Est GFR ( Amer) 20 Est GFR (Non-Af Amer) 17 POC Glucose (mg/dL) Random Glucose 109 H Calcium 10.7 H Magnesium Total Bilirubin 0.6 AST 37 H ALT 33 Alkaline Phosphatase 34 L Total Protein 8.1 Albumin 4.5 Globulin 3.7 Albumin/Globulin Ratio 1.2 Triglycerides Cholesterol LDL Cholesterol Direct HDL Cholesterol Vitamin B12 Thyroxine (T4) Total T3 TSH 3rd Generation Venous Blood Potassium 07/14/17 07/14/17 07/14/17 18:50 18:53 19:45 WBC RBC Hgb Hct MCV MCH MCHC RDW Plt Count MPV Neut % (Auto) Lymph % (Auto) [place] % (Auto) Eos % (Auto) Baso % (Auto) Neut # (Auto) Lymph # (Auto) [place] # (Auto) Eos # (Auto) Baso # (Auto) PT INR APTT pO2 36 VBG pH 7.46 H VBG pCO2 56 VBG HCO3 34.0 VBG Total CO2 41.5 H VBG O2 Sat (Calc) 66.9 H VBG Base Excess 13.1 H VBG Potassium 2.8 L Glucose 113 H Lactate 0.9 FiO2 21.0 Sodium 142.0 Potassium Chloride 100.0 Carbon Dioxide Anion Gap BUN Creatinine Est GFR ( Amer) Est GFR (Non-Af Amer) POC Glucose (mg/dL) 105 Random Glucose Calcium Magnesium 2.1 Total Bilirubin AST ALT Alkaline Phosphatase Total Protein Albumin Globulin Albumin/Globulin Ratio Triglycerides Cholesterol LDL Cholesterol Direct HDL Cholesterol Vitamin B12 Thyroxine (T4) Total T3 TSH 3rd Generation Venous Blood Potassium 2.8 L 07/15/17 07/15/17 07/15/17 05:26 07:30 07:30 WBC 11.2 H RBC 3.60 L Hgb 9.6 L Hct 29.3 L MCV 81.3 MCH 26.6 L MCHC 32.7 L RDW 16.6 H Plt Count 291 MPV Neut % (Auto) Lymph % (Auto) [place] % (Auto) Eos % (Auto) Baso % (Auto) Neut # (Auto) Lymph # (Auto) [place] # (Auto) Eos # (Auto) Baso # (Auto) PT INR APTT pO2 VBG pH VBG pCO2 VBG HCO3 VBG Total CO2 VBG O2 Sat (Calc) VBG Base Excess VBG Potassium Glucose Lactate FiO2 Sodium 149 H Potassium 3.1 L Chloride 101 Carbon Dioxide 35 H Anion Gap 16 BUN 53 H Creatinine 2.5 H Est GFR ( Amer) 23 Est GFR (Non-Af Amer) 19 POC Glucose (mg/dL) 83 Random Glucose 80 Calcium 9.9 Magnesium Total Bilirubin 0.6 AST 28 ALT 33 Alkaline Phosphatase 28 L Total Protein 7.3 Albumin 4.0 Globulin 3.3 Albumin/Globulin Ratio 1.2 Triglycerides 72 D Cholesterol 134 LDL Cholesterol Direct 63 HDL Cholesterol 43 Vitamin B12 663 Thyroxine (T4) 11.1 H Total T3 0.827 L TSH 3rd Generation 1.22 Venous Blood Potassium Assessment & Plan - Assessment and Plan (Free Text) Assessment: MRI Brain: no new strokes. cT Head: shows atrophy. 72 yr old woman with schizophrenia, on lamictal, chf, htn, and prior lacunar strokes, who is having shaking spells that are most likely not epilepsy. Nonetheless we will order EEG and hold off on starting meds until we check the EEG. These movements may also be behavioral. Thank you Dr Rader
[2017-07-16] MEDS: Sodium Chloride 0.9% 1,000 ML IV SCH (03:00)
[2017-07-16] MEDS: Aspirin 325 mg EC Tablets PO SCH ×2 (08:38→12:20)
[2017-07-16] MEDS: Multivitamin Vitamin B Complex (Nephro-Vite) Tab PO SCH ×2 (08:40→12:22)
[2017-07-16] MEDS: Pantoprazole 20 mg EC Tab PO SCH ×2 (08:43→12:22)
[2017-07-16] MEDS: Dorzolamide 2% Ophth Soln OU SCH ×4 (08:43→16:31)
--- NOTE | 2017-07-16 09:49 | CP.PCM.PN ---
Subjective - Date & Time of Evaluation Date of Evaluation: 07/16/17 Time of Evaluation: 09:46 - Subjective Subjective: Ms. Camacho was seen and examined at the bedside. She is awake, request for assistance with the bedpan, but refused to use it. She has episode of confusion.She mumble words with some clarity and also incomprehensible words. She is able to utter"kaka, nada", but unable to verbalize person, time, and place. She moves her extremities spontaneously with left upper extremity weaker than the right, but her right lower extremity is weaker than the left. There was no untoward events overnight. Objective - Vital Signs/Intake and Output Vital Signs (last 24 hours): Temp Pulse Resp BP Pulse Ox 98.7 F 67 18 146/74 100 07/16/17 08:34 07/16/17 08:41 07/16/17 08:34 07/16/17 08:41 07/16/17 08:34 Intake and Output: 07/16/17 07/16/17 06:59 18:59 Intake Total 2059 Balance 2059 - Medications Medications: Current Medications Acetaminophen (Tylenol 325mg Tab) 650 mg PO Q4 PRN PRN Reason: Pain, moderate (4-7) Alendronate Sodium (Fosamax) 70 mg PO QWK [facility] Amlodipine Besylate (Norvasc) 10 mg PO DAILY [facility] Last Admin: 07/16/17 08:41 Dose: 10 mg Aripiprazole (Abilify) 5 mg PO HS [facility] Last Admin: 07/15/17 21:23 Dose: 5 mg Aspirin (Ecotrin) 325 mg PO DAILY [facility] Last Admin: 07/16/17 08:38 Dose: 325 mg Atorvastatin Calcium (Lipitor) 10 mg PO DAILY [facility] Last Admin: 07/16/17 08:38 Dose: 10 mg Calcitriol (Rocaltrol) 0.5 mcg PO MOFR [facility] Carvedilol (Coreg) 6.25 mg PO Q12@0900,2100 [facility] Last Admin: 07/16/17 08:38 Dose: Not Given Dorzolamide HCl (Trusopt) 1 drop OU TID [facility] Last Admin: 07/16/17 08:58 Dose: Not Given Enalapril Maleate (Vasotec) 5 mg PO DAILY [facility] Last Admin: 07/16/17 08:44 Dose: 5 mg Ergocalciferol (Drisdol 50,000 Intl Units Cap) 1 cap PO NOHEMI [facility] Fenofibrate (Tricor) 145 mg PO DAILY [facility] Last Admin: 07/15/17 18:25 Dose: 145 mg Glipizide (Glucotrol) 10 mg PO DAILY [facility] Last Admin: 07/16/17 08:39 Dose: 10 mg Hydrochlorothiazide (Microzide) 12.5 mg PO DAILY [facility] Last Admin: 07/16/17 08:39 Dose: 12.5 mg Lamotrigine (Lamictal) 50 mg PO HS [facility] Last Admin: 07/15/17 21:18 Dose: 50 mg Pantoprazole Sodium (Protonix Ec Tab) 20 mg PO DAILY [facility] Last Admin: 07/16/17 08:43 Dose: 20 mg Rivaroxaban (Xarelto) 15 mg PO DAILY [facility] PRN Reason: Protocol Last Admin: 07/16/17 08:44 Dose: 15 mg Sitagliptin Phosphate (Januvia) 25 mg PO DAILY [facility] Last Admin: 07/16/17 08:39 Dose: 25 mg Timolol Maleate (Timoptic 0.5% Oph Soln) 1 drop OU BID [facility] Last Admin: 07/16/17 08:43 Dose: 1 drop Vitamin B Complex/Vit C/Folic Acid (Nephro-Diane) 1 tab PO DAILY [facility] Last Admin: 07/16/17 08:40 Dose: 1 tab - Labs Labs: 07/15/17 07:30 07/15/17 07:30 PT 17.6 Seconds (9.8-13.1) H 07/14/17 18:35 INR 1.6 (0.9-1.2) H 07/14/17 18:35 APTT 32.9 Seconds (25.6-37.1) 07/14/17 18:35 - Constitutional Appears: No Acute Distress - Head Exam Head Exam: NORMAL INSPECTION - Neurological Exam Neuro motor strength exam: Left Upper Extremity: 3, Right Upper Extremity: 4, Left Lower Extremity: 5, Right Lower Extremity: 3 Additional comments: She is able to utter"kaka, nada", but unable to verbalize person, time, and place. She moves her extremities spontaneously with left upper extremity weaker than the right, but her right lower extremity is weaker than the left. Assessment and Plan (1) Seizure disorder Assessment & Plan: Case discussed with Dr. Rader, continue all current medical regimen. Follow up EEG in am, additional medical treatment will be determine with the result of EEG. Status: Acute
--- NOTE | 2017-07-16 10:29 | PN ---
DATE: 07/16/2017 SUBJECTIVE: The patient is seen and examined. Interim events noted. Consults noted and appreciated. The patient remains in Progressive Care Unit on telemetry monitoring. The patient is not able to provide informative history or review of system. No specific issue reported by nursing staff. PHYSICAL EXAMINATION: GENERAL: The patient is in no acute distress. VITAL SIGNS: Stable. HEART: S1 and S2, normal and regular. LUNGS: Good bilateral air exchange. ABDOMEN: Soft and nontender. EXTREMITIES: No calf swelling. No tenderness. No acute ischemia. CENTRAL NERVOUS SYSTEM: Essentially unchanged. DIAGNOSTIC DATA: Available diagnostic data reviewed. Telemetry monitoring does not show any significant arrhythmias. PLAN: Overall, the patient's general medical condition is stable. Plan as ordered. Keegan Walls MD
[2017-07-16] MEDS: Potassium Chloride 20 mEq 100 ML IVPB SCH ×3 (18:16→22:58)
[2017-07-16] MEDS: Insulin Regular 100 units/ml SC SCH (22:00)
[2017-07-17 05:42] LABS: HEMOGLOBIN 9.3 g/dL (12.0-16.0); MEAN CELL VOLUME 81.8 fl (81.0-99.0); RBC 3.45 Mil/uL (3.80-5.20); RED CELL DISTRIBUTION WIDTH 16.5 % (11.5-14.5)
[2017-07-17 05:47] LABS: ALB/GLOB RATIO 1.2 (1.0-2.1); ALBUMIN 3.5 g/dL (3.5-5.0); CALCIUM 9.1 mg/dL (8.4-10.2)
[2017-07-17] MEDS: Insulin Regular 100 units/ml SC SCH ×4 (07:04→16:48)
[2017-07-17] MEDS: Aspirin 325 mg EC Tablets PO SCH (08:43)
[2017-07-17] MEDS: Multivitamin Vitamin B Complex (Nephro-Vite) Tab PO SCH (08:45)
--- NOTE | 2017-07-17 08:45 | HP ---
CHIEF COMPLAINT: Worsening of weakness. HISTORY OF PRESENT ILLNESS: This is a 72-year-old female who has had history of CVA in the past, who is a long-term resident, very poor historian, who was found by family to have left-sided weakness, so the patient was sent to the hospital and was admitted for further management. As mentioned earlier, the patient is a very poor historian and history is not available from the patient as well as review of systems is not available as well. PAST MEDICAL HISTORY: Significant for CVA, elevated cholesterol, hypertension, diabetes, dyspepsia, and glaucoma. The patient also has history of schizophrenia from psychiatric point of view and also has seizures. PAST SURGICAL HISTORY: Unremarkable. MEDICATIONS: The patient is taking multiple medications including Abilify, , Lipitor, , Coreg, lisinopril and hydrochlorothiazide combination, vitamin D, fenofibrate, Lasix, glipizide, latanoprost, omeprazole, sitagliptin, vitamin B and C complex, amlodipine, lamotrigine, and meclizine. ALLERGIES: THE PATIENT IS NOT ALLERGIC TO ANY MEDICATIONS. FAMILY HISTORY: Noncontributory. PHYSICAL EXAMINATION: GENERAL: A well-built and well-nourished, overweight 72-year-old female, non-communicative, in no acute distress. VITAL SIGNS: Temperature 97.6, pulse 60, respirations 18, and blood pressure 128/75. HEENT: The patient has glaucoma. No JVD. No thyromegaly. No lymphadenopathy. No nystagmus. Normocephalic and atraumatic skull. HEART: S1 and S2, normal and regular. No significant murmur, gallop or rub is heard. LUNGS: Exam shows good bilateral air exchange. No rales or rhonchi. ABDOMEN: Soft and nontender. No organomegaly. No fluids. Bowel sounds are plus and normal. EXTREMITIES: No edema. No calf swelling. No tenderness. No acute ischemia. CENTRAL NERVOUS SYSTEM: Exam is difficult to evaluate as not cooperative, the patient with advanced dementia and previous CVA. DIAGNOSTIC DATA: Available diagnostic data reviewed. Telemetry monitoring does not show any significant arrhythmias. WBC 11.5, hemoglobin 10.7, hematocrit 32.7, and platelets 335,000. PT 17.6 and PTT 32.9. Sodium 146, potassium 2.8, chloride 96, bicarb 37, BUN 57, and creatinine is unremarkable. EKG does not reveal any acute ST-T changes. ADMITTING IMPRESSION: Cerebrovascular accident, hypertension, elevated cholesterol, diabetes type 2 with hyperglycemia, schizophrenia, seizure, advanced dementia, congestive heart failure systolic, chronic arthritis, and anxiety. PLAN: As ordered. Case and plan discussed with nursing staff and emergency room physician. Keegan Walls MD
[2017-07-17] MEDS: Pantoprazole 20 mg EC Tab PO SCH (08:46)
[2017-07-17] MEDS: Dorzolamide 2% Ophth Soln OU SCH ×3 (08:48→16:47)
--- NOTE | 2017-07-17 11:38 | PN ---
DATE: 07/17/2017 SUBJECTIVE: The patient is seen and examined. Interim events noted. Consults noted and appreciated. Neurology followup and interventions noted and appreciated. The patient remains in Progressive Care Unit on telemetry monitoring. more awake and conversant, although due to dementia thorough history and review of systems is not available, but the patient does speak with more than usual. PHYSICAL EXAMINATION: GENERAL: The patient is in no acute distress. VITAL SIGNS: Stable. HEART: S1 and S2, normal and regular. LUNGS: Good bilateral air exchange. ABDOMEN: Soft and nontender. EXTREMITIES: No edema. No calf swelling. No tenderness. No acute ischemia. CENTRAL NERVOUS SYSTEM: Essentially unchanged. DIAGNOSTIC DATA: Available diagnostic data reviewed. Telemetry monitoring does not reveal significant arrhythmia. PLAN: Overall, the patient's general medical condition is stable. Plan as ordered. Keegan Walls MD
--- NOTE | 2017-07-17 12:36 | PQF GENQUE ---
Dr. Walls, The attending physician is required to clarify conflicting documentation in the medical record. The following documentation is noted in the medical record: Diagnosis 1: CVA Documented by: Attending Location: H and P Diagnosis 2: On 07/16: Seizure Disorder Documented by: SCHOOL PSYCHOLOGY SPECIALIST working with Neurologist Location: progress note 07/15 Neurology consult: hx. prior lacunar strokes: Assessment: MRI Brain: no new strokes. CT Head: shows atrophy. 72 yr. old woman with schizophrenia, on lamictal, chf, htn, and prior lacunar strokes, who is having shaking spells that are most likely not epilepsy. Nonetheless we will order EEG and hold off on starting meds until we check the EEG. These movements may also be behavioral. 07/16 Neurology SCHOOL PSYCHOLOGY SPECIALIST note: (1) Seizure disorder Assessment Plan: Case discussed with Dr. Rader, continue all current medical regimen. Follow up EEG in am, additional medical treatment will be determine with the result of EEG. Status: Acute EEG report pending This form is a permanent part of the medical record Clarification of your documentation is requested to better reflect the severity of illness and intensity of treatment of your patient. Indicators present [] Specify: [] [] Specify: [] [] Specify: [] [] Specify: [] Location in the medical record that reflects the above clinical findings: [] Treatment Provided: [] PHYSICIAN'S RESPONSE Based on your medical judgment of the clinical indicators outlined above please clarify the following: [] Practitioner response [] If unable to determine, please check the box, sign and date. Present On Admission (POA) Indicator: [] Present at the time of admission [] Not present at the time of admission [] Clinically Undetermined In responding to this query, please exercise your independent professional judgment. The fact that a question is asked does not imply that any particular answer is desired or expected. Thank you for your clarification on this documentation. If you have any questions please call. * Thank you, Elena Ledesma RN ext. #[phone] MTDD
--- NOTE | 2017-07-17 17:40 | CP.PCM.PN ---
Subjective - Date & Time of Evaluation Date of Evaluation: 07/17/17 Time of Evaluation: 17:39 - Subjective Subjective: Ms. Camacho was seen and examined at the bedside. She is awake, has episode of confusion.She mumble words with some clarity and also incomprehensible words. She is unable to verbalize person, time, and place. She moves her extremities spontaneously with left upper extremity weaker than the right, but her right lower extremity is weaker than the left. According to staff, patient behavior is much better than yesterday. There was no untoward events overnight. Objective - Vital Signs/Intake and Output Vital Signs (last 24 hours): Temp Pulse Resp BP Pulse Ox 98.2 F 72 17 104/66 100 07/17/17 16:25 07/17/17 16:25 07/17/17 16:25 07/17/17 16:25 07/17/17 16:25 - Medications Medications: Current Medications Acetaminophen (Tylenol 325mg Tab) 650 mg PO Q4 PRN PRN Reason: Pain, moderate (4-7) Alendronate Sodium (Fosamax) 70 mg PO QWK [facility] Amlodipine Besylate (Norvasc) 10 mg PO DAILY [facility] Last Admin: 07/17/17 08:48 Dose: 10 mg Aripiprazole (Abilify) 5 mg PO HS [facility] Last Admin: 07/16/17 22:04 Dose: 5 mg Aspirin (Ecotrin) 325 mg PO DAILY [facility] Last Admin: 07/17/17 08:43 Dose: 325 mg Atorvastatin Calcium (Lipitor) 10 mg PO DAILY [facility] Last Admin: 07/17/17 08:44 Dose: 10 mg Calcitriol (Rocaltrol) 0.5 mcg PO MOFR [facility] Last Admin: 07/17/17 05:38 Dose: 0.5 mcg Carvedilol (Coreg) 6.25 mg PO Q12@0900,2100 [facility] Last Admin: 07/17/17 08:44 Dose: Not Given Dorzolamide HCl (Trusopt) 1 drop OU TID [facility] Last Admin: 07/17/17 16:47 Dose: 1 drop Enalapril Maleate (Vasotec) 5 mg PO DAILY [facility] Last Admin: 07/17/17 11:58 Dose: 5 mg Ergocalciferol (Drisdol 50,000 Intl Units Cap) 1 cap PO NOHEMI [facility] Fenofibrate (Tricor) 145 mg PO DAILY [facility] Last Admin: 07/17/17 08:43 Dose: 145 mg Glipizide (Glucotrol) 10 mg PO DAILY [facility] Last Admin: 07/17/17 08:44 Dose: 10 mg Hydrochlorothiazide (Microzide) 12.5 mg PO DAILY [facility] Last Admin: 07/17/17 08:45 Dose: 12.5 mg Insulin Human Regular (Humulin R) 0 units [facility] PRN Reason: Protocol Last Admin: 07/17/17 16:48 Dose: Not Given Lamotrigine (Lamictal) 50 mg PO HS [facility] Last Admin: 07/16/17 22:05 Dose: 50 mg Pantoprazole Sodium (Protonix Ec Tab) 20 mg PO DAILY [facility] Last Admin: 07/17/17 08:46 Dose: 20 mg Rivaroxaban (Xarelto) 15 mg PO DAILY [facility] PRN Reason: Protocol Last Admin: 07/17/17 08:43 Dose: 15 mg Sitagliptin Phosphate (Januvia) 25 mg PO DAILY [facility] Last Admin: 07/17/17 08:44 Dose: 25 mg Timolol Maleate (Timoptic 0.5% Ophth Soln) 1 drop OU BID [facility] Last Admin: 07/17/17 16:48 Dose: 1 drop Vitamin B Complex/Vit C/Folic Acid (Nephro-Diane) 1 tab PO DAILY [facility] Last Admin: 07/17/17 08:45 Dose: 1 tab - Labs Labs: 07/17/17 04:10 07/17/17 04:10 PT 17.6 Seconds (9.8-13.1) H 07/14/17 18:35 INR 1.6 (0.9-1.2) H 07/14/17 18:35 APTT 32.9 Seconds (25.6-37.1) 07/14/17 18:35 - Constitutional Appears: No Acute Distress - Head Exam Head Exam: NORMAL INSPECTION - Neurological Exam Neurological Exam: Awake Neuro motor strength exam: Left Upper Extremity: 3, Right Upper Extremity: 4, Left Lower Extremity: 4 Additional comments: She is awake, moves all extremities, but unable to follow simple commands. Assessment and Plan (1) Seizure disorder Assessment & Plan: Case discussed with Dr. Camacho, continue all current medical, physical, and occupational therapies. Pending EEG and echocardiogram results. Status: Acute
--- NOTE | 2017-07-18 11:01 | CP.PCM.PN ---
Subjective - Date & Time of Evaluation Date of Evaluation: 07/18/17 Time of Evaluation: 07:10 - Subjective Subjective: Patient seen and examined bedside with Dr Walls. Patient awake, alert, able to talk but incomprehensible words. Reports that she understands the questions, but her answers are incomprehensibles. Able to move 4 ext, but will motor deficit noted left arm and right leg, that is weaker than left. No overnight events. Patient nodding his head denies headache, chest pain, SOB, abd pain Objective - Vital Signs/Intake and Output Vital Signs (last 24 hours): Temp Pulse Resp BP Pulse Ox 98.1 F 63 20 136/80 96 07/18/17 07:35 07/18/17 07:35 07/18/17 07:35 07/18/17 07:35 07/18/17 07:35 - Medications Medications: Current Medications Acetaminophen (Tylenol 325mg Tab) 650 mg PO Q4 PRN PRN Reason: Pain, moderate (4-7) Alendronate Sodium (Fosamax) 70 mg PO QWK [facility] Amlodipine Besylate (Norvasc) 10 mg PO DAILY [facility] Last Admin: 07/17/17 08:48 Dose: 10 mg Aripiprazole (Abilify) 5 mg PO HS [facility] Last Admin: 07/17/17 21:25 Dose: 5 mg Aspirin (Ecotrin) 325 mg PO DAILY [facility] Last Admin: 07/17/17 08:43 Dose: 325 mg Atorvastatin Calcium (Lipitor) 10 mg PO DAILY [facility] Last Admin: 07/17/17 08:44 Dose: 10 mg Calcitriol (Rocaltrol) 0.5 mcg PO MOFR [facility] Last Admin: 07/17/17 05:38 Dose: 0.5 mcg Carvedilol (Coreg) 6.25 mg PO Q12@0900,2100 [facility] Last Admin: 07/17/17 21:25 Dose: 6.25 mg Dorzolamide HCl (Trusopt) 1 drop OU TID [facility] Last Admin: 07/17/17 16:47 Dose: 1 drop Enalapril Maleate (Vasotec) 5 mg PO DAILY [facility] Last Admin: 07/17/17 11:58 Dose: 5 mg Ergocalciferol (Drisdol 50,000 Intl Units Cap) 1 cap PO NOHEMI [facility] Fenofibrate (Tricor) 145 mg PO DAILY [facility] Last Admin: 07/17/17 08:43 Dose: 145 mg Glipizide (Glucotrol) 10 mg PO DAILY [facility] Last Admin: 07/17/17 08:44 Dose: 10 mg Hydrochlorothiazide (Microzide) 12.5 mg PO DAILY [facility] Last Admin: 07/17/17 08:45 Dose: 12.5 mg Insulin Human Regular (Humulin R) 0 units SC ACHS [facility] PRN Reason: Protocol Last Admin: 07/17/17 16:48 Dose: Not Given Lamotrigine (Lamictal) 50 mg PO HS [facility] Last Admin: 07/17/17 21:25 Dose: 50 mg Pantoprazole Sodium (Protonix Ec Tab) 20 mg PO DAILY [facility] Last Admin: 07/17/17 08:46 Dose: 20 mg Rivaroxaban (Xarelto) 15 mg PO DAILY [facility] PRN Reason: Protocol Last Admin: 07/17/17 08:43 Dose: 15 mg Sitagliptin Phosphate (Januvia) 25 mg PO DAILY [facility] Last Admin: 07/17/17 08:44 Dose: 25 mg Timolol Maleate (Timoptic 0.5% [facility]) 1 drop OU BID [facility] Last Admin: 07/17/17 16:48 Dose: 1 drop Vitamin B Complex/Vit C/Folic Acid (Nephro-Diane) 1 tab PO DAILY [facility] Last Admin: 07/17/17 08:45 Dose: 1 tab - Labs Labs: 07/17/17 04:10 07/17/17 04:10 PT 17.6 Seconds (9.8-13.1) H 07/14/17 18:35 INR 1.6 (0.9-1.2) H 07/14/17 18:35 APTT 32.9 Seconds (25.6-37.1) 07/14/17 18:35 - Constitutional Appears: Non-toxic, No Acute Distress - Head Exam Head Exam: ATRAUMATIC, NORMOCEPHALIC - Eye Exam Eye Exam: Normal appearance - ENT Exam ENT Exam: Mucous Membranes Moist - Neck Exam Neck Exam: Full ROM - Respiratory Exam Respiratory Exam: Clear to Ausculation Bilateral. absent: Rales, Rhonchi, Wheezes - Cardiovascular Exam Cardiovascular Exam: REGULAR RHYTHM, +S1, +S2 - GI/Abdominal Exam GI & Abdominal Exam: Soft, Normal Bowel Sounds. 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 No intracranial hemorrhage -CT head: no acute intracranial hemorrhage. Atrophy with extensive small vessel disease. -Neurology consult appreciated -c/w aspirin, Lipitor -PT,OT, speech therapy -f/u ECHO 2) Hx/o seizure Neurology consult appreciated: shaking spells are probably not epilepsy -Pending EEG results 3) Schizophrenia c/w home medications 4) HTN -c/w carvedidol, Norvasc, vasotec 5) DM c/w Januvia, glipizide 6) DVT prophylaxis On xarelto 15 mg daily
[2017-07-18] MEDS: Dorzolamide 2% Ophth Soln OU SCH ×3 (11:05→17:41)
[2017-07-18] MEDS: Aspirin 325 mg EC Tablets PO SCH (11:11)
[2017-07-18] MEDS: Pantoprazole 20 mg EC Tab PO SCH (11:12)
[2017-07-18] MEDS: Multivitamin Vitamin B Complex (Nephro-Vite) Tab PO SCH (11:12)
[2017-07-18] MEDS: Insulin Regular 100 units/ml SC SCH ×3 (12:12→23:08)
--- NOTE | 2017-07-18 17:09 | CP.PCM.PN ---
Subjective - Date & Time of Evaluation Date of Evaluation: 07/18/17 Time of Evaluation: 17:08 - Subjective Subjective: Ms. Camacho was seen and examined at the bedside. She is alert, follows simple commands, able to move all extremities with left upper extremity weaker than the right and right leg weaker than the left. Preliminary EEG report is normal. There was no untoward events overnight. Objective - Vital Signs/Intake and Output Vital Signs (last 24 hours): Temp Pulse Resp BP Pulse Ox 98.5 F 66 16 108/65 97 07/18/17 16:16 07/18/17 16:16 07/18/17 16:16 07/18/17 16:16 07/18/17 16:16 - Medications Medications: Current Medications Acetaminophen (Tylenol 325mg Tab) 650 mg PO Q4 PRN PRN Reason: Pain, moderate (4-7) Alendronate Sodium (Fosamax) 70 mg PO QWK [facility] Amlodipine Besylate (Norvasc) 10 mg PO DAILY [facility] Last Admin: 07/18/17 12:15 Dose: 10 mg Aripiprazole (Abilify) 5 mg PO HS [facility] Last Admin: 07/17/17 21:25 Dose: 5 mg Aspirin (Ecotrin) 325 mg PO DAILY [facility] Last Admin: 07/18/17 11:11 Dose: 325 mg Atorvastatin Calcium (Lipitor) 10 mg PO DAILY [facility] Last Admin: 07/18/17 11:12 Dose: 10 mg Calcitriol (Rocaltrol) 0.5 mcg PO MOFR [facility] Last Admin: 07/17/17 05:38 Dose: 0.5 mcg Carvedilol (Coreg) 6.25 mg PO Q12@0900,2100 [facility] Last Admin: 07/18/17 11:10 Dose: 6.25 mg Dorzolamide HCl (Trusopt) 1 drop OU TID [facility] Last Admin: 07/18/17 15:17 Dose: 1 drop Enalapril Maleate (Vasotec) 5 mg PO DAILY [facility] Last Admin: 07/18/17 12:15 Dose: 5 mg Ergocalciferol (Drisdol 50,000 Intl Units Cap) 1 cap PO NOHEMI [facility] Fenofibrate (Tricor) 145 mg PO DAILY [facility] Last Admin: 07/18/17 11:06 Dose: 145 mg Glipizide (Glucotrol) 10 mg PO DAILY [facility] Last Admin: 07/18/17 11:12 Dose: 10 mg Hydrochlorothiazide (Microzide) 12.5 mg PO DAILY [facility] Last Admin: 07/18/17 12:14 Dose: 12.5 mg Insulin Human Regular (Humulin R) 0 units SC ACHS [facility] PRN Reason: Protocol Last Admin: 07/18/17 12:12 Dose: 2 unit Lamotrigine (Lamictal) 50 mg PO HS [facility] Last Admin: 07/17/17 21:25 Dose: 50 mg Pantoprazole Sodium (Protonix Ec Tab) 20 mg PO DAILY [facility] Last Admin: 07/18/17 11:12 Dose: 20 mg Rivaroxaban (Xarelto) 15 mg PO DAILY [facility] PRN Reason: Protocol Last Admin: 07/18/17 11:13 Dose: 15 mg Sitagliptin Phosphate (Januvia) 25 mg PO DAILY [facility] Last Admin: 07/18/17 11:12 Dose: 25 mg Timolol Maleate (Timoptic 0.5% [facility]) 1 drop OU BID [facility] Last Admin: 07/18/17 11:05 Dose: 1 drop Vitamin B Complex/Vit C/Folic Acid (Nephro-Diane) 1 tab PO DAILY [facility] Last Admin: 07/18/17 11:12 Dose: 1 tab - Labs Labs: 07/17/17 04:10 07/17/17 04:10 PT 17.6 Seconds (9.8-13.1) H 07/14/17 18:35 INR 1.6 (0.9-1.2) H 07/14/17 18:35 APTT 32.9 Seconds (25.6-37.1) 07/14/17 18:35 - Constitutional Appears: No Acute Distress - Head Exam Head Exam: NORMAL INSPECTION - Neurological Exam Neurological Exam: Alert, Awake Neuro motor strength exam: Left Upper Extremity: 3, Right Upper Extremity: 4, Left Lower Extremity: 4, Right Lower Extremity: 3 Additional comments: Neurological unchanged from previous examination. Assessment and Plan (1) Seizure disorder Assessment & Plan: Case discussed with Dr. Camacho, continue all current medical, physical, occupational therapies. Withe MRI of the brain normal and EEG normal, there is no new recommendation from neurology and is signing off from this case. Please re-consult as needed. Status: Acute
[2017-07-19 00:22] VITALS: RESP 18
[2017-07-19] MEDS: Insulin Regular 100 units/ml SC SCH ×3 (06:43→12:35)
[2017-07-19] MEDS: Aspirin 325 mg EC Tablets PO SCH (09:41)
[2017-07-19] MEDS: Multivitamin Vitamin B Complex (Nephro-Vite) Tab PO SCH (09:44)
--- NOTE | 2017-07-19 09:44 | CP.PCM.PN ---
Objective - Vital Signs/Intake and Output Vital Signs (last 24 hours): Temp Pulse Resp BP Pulse Ox 97.7 F 54 L 18 115/67 98 07/19/17 07:47 07/19/17 07:47 07/19/17 07:47 07/19/17 07:47 07/19/17 07:47 - Medications Medications: Current Medications Acetaminophen (Tylenol 325mg Tab) 650 mg PO Q4 PRN PRN Reason: Pain, moderate (4-7) Alendronate Sodium (Fosamax) 70 mg PO QWK [facility] Amlodipine Besylate (Norvasc) 10 mg PO DAILY [facility] Last Admin: 07/18/17 12:15 Dose: 10 mg Aripiprazole (Abilify) 5 mg PO HS [facility] Last Admin: 07/18/17 21:47 Dose: 5 mg Aspirin (Ecotrin) 325 mg PO DAILY [facility] Last Admin: 07/18/17 11:11 Dose: 325 mg Atorvastatin Calcium (Lipitor) 10 mg PO DAILY [facility] Last Admin: 07/18/17 11:12 Dose: 10 mg Calcitriol (Rocaltrol) 0.5 mcg PO MOFR [facility] Last Admin: 07/17/17 05:38 Dose: 0.5 mcg Carvedilol (Coreg) 6.25 mg PO Q12@0900,2100 [facility] Last Admin: 07/18/17 21:47 Dose: Not Given Dorzolamide HCl (Trusopt) 1 drop OU TID [facility] Last Admin: 07/18/17 17:41 Dose: 1 drop Enalapril Maleate (Vasotec) 5 mg PO DAILY [facility] Last Admin: 07/18/17 12:15 Dose: 5 mg Ergocalciferol (Drisdol 50,000 Intl Units Cap) 1 cap PO NOHEMI [facility] Fenofibrate (Tricor) 145 mg PO DAILY [facility] Last Admin: 07/18/17 11:06 Dose: 145 mg Glipizide (Glucotrol) 10 mg PO DAILY [facility] Last Admin: 07/18/17 11:12 Dose: 10 mg Hydrochlorothiazide (Microzide) 12.5 mg PO DAILY [facility] Last Admin: 07/18/17 12:14 Dose: 12.5 mg Insulin Human Regular (Humulin R) 0 units SC [facility] PRN Reason: Protocol Last Admin: 07/19/17 06:43 Dose: Not Given Lamotrigine (Lamictal) 50 mg PO HS [facility] Last Admin: 07/18/17 21:48 Dose: 50 mg Pantoprazole Sodium (Protonix Ec Tab) 20 mg PO DAILY [facility] Last Admin: 07/18/17 11:12 Dose: 20 mg Rivaroxaban (Xarelto) 15 mg PO DAILY [facility] PRN Reason: Protocol Last Admin: 07/18/17 11:13 Dose: 15 mg Sitagliptin Phosphate (Januvia) 25 mg PO DAILY [facility] Last Admin: 07/18/17 11:12 Dose: 25 mg Timolol Maleate (Timoptic 0.5% [facility]) 1 drop OU BID [facility] Last Admin: 07/18/17 17:41 Dose: 1 drop Vitamin B Complex/Vit C/Folic Acid (Nephro-Diane) 1 tab PO DAILY [facility] Last Admin: 07/18/17 11:12 Dose: 1 tab - Labs Labs: 07/17/17 04:10 07/17/17 04:10 PT 17.6 Seconds (9.8-13.1) H 07/14/17 18:35 INR 1.6 (0.9-1.2) H 07/14/17 18:35 APTT 32.9 Seconds (25.6-37.1) 07/14/17 18:35
[2017-07-19] MEDS: Pantoprazole 20 mg EC Tab PO SCH (09:45)
[2017-07-19] MEDS: Dorzolamide 2% Ophth Soln OU SCH ×2 (09:46→16:43)
--- NOTE | 2017-07-19 10:22 | CARD ---
APPROVED REPORT EXAM: Two-dimensional and M-mode echocardiogram with Doppler and color Doppler. Other Information Quality : GoodRhythm : NSR INDICATION CVA/TIA 2D DIMENSIONS IVSd1.36 (0.7-1.1cm)LVDd4.36 (3.9-5.9cm) LVOT Diameter1.97 (1.8-2.4cm)PWd1.00 (0.7-1.1cm) IVSs1.31 (0.8-1.2cm)LVDs2.87 (2.5-4.0cm) FS (%) 34.1 %PWs1.31 (0.8-1.2cm) M-Mode DIMENSIONS Left Atrium (MM)4.55 (2.5-4.0cm)IVSd1.16 (0.7-1.1cm) Aortic Root3.25 (2.2-3.7cm)LVDd5.27 (4.0-5.6cm) Aortic Cusp Exc.1.99 (1.5-2.0cm)PWd1.21 (0.7-1.1cm) IVSs1.68 cmFS (%) 47 % LVDs2.81 (2.0-3.8cm)PWs2.07 cm Mitral Valve MV E Nfpqsqoe78.1cm/sMV DECEL [id number] A Ydkjtdgh757.8cm/s MV PAV57znH/A ratio0.7MVA (PHT)2.91cm2 TDI Lateral E' Peak V4.81cm/sMedial E' Peak V5.05cm/sE/Lateral E'16.0 E/Medial E'15.3 Tricuspid Valve TR Peak Rqcyzbks533qy/sRAP EPUZGSRX04uzMlXM Peak Gr.22mmHg UZRI16ccMs LEFT VENTRICLE The left ventricle is normal size. There is normal left ventricular wall thickness. The left ventricular function is normal. The left ventricular ejection fraction is 60% There is normal LV segmental wall motion. Transmitral Doppler flow pattern is Grade I-abnormal relaxation pattern. No left ventricle thrombus noted on this study. There is no ventricular septal defect visualized. There is no left ventricular aneurysm. There is no mass noted in the left ventricle. RIGHT VENTRICLE The right ventricle is normal size. There is normal right ventricular wall thickness. The right ventricular systolic function is normal. ATRIA The left atrium size is normal. The right atrium size is normal. The interatrial septum is intact with no evidence for an atrial septal defect. AORTIC VALVE The aortic valve is normal in structure. There is trace to mild aortic regurgitation. There is no aortic valvular stenosis. There is no aortic valvular vegetation. MITRAL VALVE The mitral valve is normal in structure. There is no evidence of mitral valve prolapse. There is no mitral valve stenosis. There is no mitral valve regurgitation noted. TRICUSPID VALVE The tricuspid valve is normal in structure. There is no tricuspid valve regurgitation noted. There is no tricuspid valve prolapse or vegetation. There is no tricuspid valve stenosis. PULMONIC VALVE The pulmonary valve is normal in structure. There is no pulmonic valvular regurgitation. There is no pulmonic valvular stenosis. GREAT VESSELS The aortic root is normal in size. The ascending aorta is normal in size. The IVC is normal in size and collapses >50% with inspiration. PERICARDIAL EFFUSION The pericardium appears normal. There is no pleural effusion. <Conclusion> Normal LV Systolic function Trace to Mild AI Impaired Diastolic Relaxation
--- NOTE | 2017-07-19 11:31 | CP.PCM.DIS ---
Provider - Provider Date of Admission: 07/14/17 20:42 Attending physician: Keegan Walls MD Consults: Neurologist Dr Camacho Time Spent in preparation of Discharge (in minutes): 25 Hospital Course - Lab Results Lab Results: Most Recent Lab Values WBC 9.0 K/uL (4.8-10.8) 07/17/17 04:10 RBC 3.45 Mil/uL (3.80-5.20) L 07/17/17 04:10 Hgb 9.3 g/dL (12.0-16.0) L 07/17/17 04:10 Hct 28.3 % (34.0-47.0) L 07/17/17 04:10 MCV 81.8 fl (81.0-99.0) 07/17/17 04:10 MCH 27.0 pg (27.0-31.0) 07/17/17 04:10 MCHC 33.0 g/dL (33.0-37.0) 07/17/17 04:10 RDW 16.5 % (11.5-14.5) H 07/17/17 04:10 Plt Count 275 K/uL (130-400) 07/17/17 04:10 MPV 10.0 fl (7.2-11.7) 07/14/17 18:35 Neut % (Auto) 64.8 % (50.0-75.0) 07/14/17 18:35 Lymph % (Auto) 24.5 % (20.0-40.0) 07/14/17 18:35 Starr % (Auto) 8.7 % (0.0-10.0) 07/14/17 18:35 Eos % (Auto) 1.4 % (0.0-4.0) 07/14/17 18:35 Baso % (Auto) 0.6 % (0.0-2.0) 07/14/17 18:35 Neut # (Auto) 7.4 K/uL (1.8-7.0) H 07/14/17 18:35 Lymph # (Auto) 2.8 K/uL (1.0-4.3) 07/14/17 18:35 Starr # (Auto) 1.0 K/uL (0.0-0.8) H 07/14/17 18:35 Eos # (Auto) 0.2 K/uL (0.0-0.7) 07/14/17 18:35 Baso # (Auto) 0.1 K/uL (0.0-0.2) 07/14/17 18:35 PT 17.6 Seconds (9.8-13.1) H 07/14/17 18:35 INR 1.6 (0.9-1.2) H 07/14/17 18:35 APTT 32.9 Seconds (25.6-37.1) 07/14/17 18:35 pO2 36 mm/Hg (30-55) 07/14/17 18:50 VBG pH 7.46 (7.32-7.43) H 07/14/17 18:50 VBG pCO2 56 mmHg (40-60) 07/14/17 18:50 VBG HCO3 34.0 mmol/L 07/14/17 18:50 VBG Total CO2 41.5 mmol/L (22-28) H 07/14/17 18:50 VBG O2 Sat (Calc) 66.9 % (40-65) H 07/14/17 18:50 VBG Base Excess 13.1 mmol/L (0.0-2.0) H 07/14/17 18:50 VBG Potassium 2.8 mmol/L (3.6-5.2) L 07/14/17 18:50 Sodium 142.0 mmol/L (132-148) 07/14/17 18:50 Chloride 100.0 mmol/L (98-107) 07/14/17 18:50 Glucose 113 mg/dL (65-105) H 07/14/17 18:50 Lactate 0.9 mmol/L (0.7-2.1) 07/14/17 18:50 FiO2 21.0 % 07/14/17 18:50 Sodium 147 mmol/l (132-148) 07/17/17 04:10 Potassium 3.7 MMOL/L (3.6-5.0) 07/17/17 04:10 Chloride 104 mmol/L (98-107) 07/17/17 04:10 Carbon Dioxide 32 mmol/L (22-30) H 07/17/17 04:10 Anion Gap 15 (10-20) 07/17/17 04:10 BUN 36 mg/dl (7-17) H 07/17/17 04:10 Creatinine 2.1 mg/dl (0.7-1.2) H 07/17/17 04:10 Est GFR ( Amer) 28 07/17/17 04:10 Est GFR (Non-Af Amer) 23 07/17/17 04:10 POC Glucose (mg/dL) 201 mg/dL (65-110) H 07/19/17 10:43 Random Glucose 102 mg/dL (65-105) 07/17/17 04:10 Calcium 9.1 mg/dL (8.4-10.2) 07/17/17 04:10 Magnesium 2.1 MG/DL (1.6-2.3) 07/14/17 19:45 Total Bilirubin 0.6 mg/dl (0.2-1.3) 07/17/17 04:10 AST 29 U/L (14-36) 07/17/17 04:10 ALT 34 U/L (9-52) 07/17/17 04:10 Alkaline Phosphatase 24 U/L (38-126) L 07/17/17 04:10 Total Protein 6.5 G/DL (6.3-8.2) 07/17/17 04:10 Albumin 3.5 g/dL (3.5-5.0) 07/17/17 04:10 Globulin 3.0 gm/dL (2.2-3.9) 07/17/17 04:10 Albumin/Globulin Ratio 1.2 (1.0-2.1) 07/17/17 04:10 Triglycerides 72 mg/DL (0-149) D 07/15/17 07:30 Cholesterol 134 mg/dL (0-199) 07/15/17 07:30 LDL Cholesterol Direct 63 mg/dL (0-129) 07/15/17 07:30 HDL Cholesterol 43 MG/DL (30-70) 07/15/17 07:30 Vitamin B12 663 pg/mL (239-931) 07/15/17 07:30 Thyroxine (T4) 11.1 ug/dl (5.5-11.0) H 07/15/17 07:30 Total T3 0.827 nmol/L (1.49-2.60) L 07/15/17 07:30 TSH 3rd Generation 1.22 mIU/ML (0.46-4.68) 07/15/17 07:30 Venous Blood Potassium 2.8 mmol/L (3.6-5.2) L 07/14/17 18:50 - Hospital Course Hospital Course: 72 yo ,f, PMhx/o CVA with residual right hemiparesis and dysarthria , hx/o seizure, schizophrenia, HTN, DM admitted for possible CVA and hypokalemia. Patient evaluated by evaluated by neurologist. -CT head: no acute intracranial hemorrhage. Atrophy with extensive small vessel disease. -MRI Damion: no acute infarct. No intracranial hemorrhage. EEG normal. Echo normal.Hypokalemia resolved. Patient during hospitalization hemodynamically stable, mild motor deficit RUE and LLW with moderate improvement. No imaging findings for acute CVA , may be a TIA on admission resolved. Patient seen and examined with Dr Walls. Patient cleared to be discharge by Dr Walls and Neurologist to go to Acute Rehab at [facility]. Diagnosis 1) TIA -resolved 2) Hx/o CVA -with residual right hemiparesis and dysarthria -chronic 3) Hx/o seizure Neurology consult appreciated: shaking spells are probably not epilepsy -EEG normal 4) Schizophrenia c/w home medications 5) HTN -c/w carvedidol, Norvasc, vasotec 6) DM c/w Januvia, glipizide Discharge Exam - Head Exam Head Exam: NORMAL INSPECTION - Eye Exam Eye Exam: Normal appearance - ENT Exam ENT Exam: Mucous Membranes Moist - Respiratory Exam Respiratory Exam: Clear to PA & Lateral. absent: Rales, Wheezes - Cardiovascular Exam Cardiovascular Exam: REGULAR RHYTHM, +S1, +S2 - GI/Abdominal Exam GI & Abdominal Exam: Normal Bowel Sounds, Soft. absent: Guarding, Rebound, Tenderness - Extremities Exam Extremities exam: normal inspection - Neurological Exam Neurological exam: Alert Additional comments: LUE mild monoparesis that improved. RLL mild monoparesis that improved. Muscle strenght 3/5 dysarthria baseline - Psychiatric Exam Psychiatric exam: Normal Affect - Skin Skin Exam: Normal Color Discharge Plan - Follow Up Plan Condition: FAIR Disposition: HOME/ ROUTINE Instructions: Weakness (ED) Additional Instructions: pt. cleared for discharge to [facility] today by and pending echo results- awaiting to read results Referrals: Keegan Walls MD [Staff Provider] -
[2017-07-19 16:21] VITALS: BP 111/68; PULSE 67; TEMP 98; O2SAT 96
[2017-07-20] MEDS ORDERED: Ergocalciferol 50,000 Intl Units Cap PO SCH (09:00)
== END 2017-07-19 16:00 | DRG 69 ==
LOC: H.ER 18:14 → H.ERHOLD 20:42 → H.TEL 07-15 00:50
PROVIDERS: ADMIT Internal Medicine; ATTEND Internal Medicine
DX: G45.9 Transient cerebral ischemic attack, unspecified (principal); I69.351 Hemiplegia and hemiparesis following cerebral infarction affecting right dominant side; I13.0 Hypertensive heart and chronic kidney disease with heart failure and stage 1 through stage 4 chronic kidney disease, or unspecified chronic kidney disease; I50.22 Chronic systolic (congestive) heart failure; E87.6 Hypokalemia; I69.322 Dysarthria following cerebral infarction; F20.9 Schizophrenia, unspecified; N18.3 Chronic kidney disease, stage 3 (moderate); Z96.653 Presence of artificial knee joint, bilateral; E11.65 Type 2 diabetes mellitus with hyperglycemia; F03.90 Unspecified dementia, unspecified severity, without behavioral disturbance, psychotic disturbance, mood disturbance, and anxiety; F32.9 Major depressive disorder, single episode, unspecified; E78.00 Pure hypercholesterolemia, unspecified; E78.5 Hyperlipidemia, unspecified; H40.9 Unspecified glaucoma; F41.9 Anxiety disorder, unspecified; M19.90 Unspecified osteoarthritis, unspecified site; E11.22 Type 2 diabetes mellitus with diabetic chronic kidney disease